=== PATIENT | male | born 1955 | race Two or more races ===

== ENCOUNTER 2017-11-04 11:05 | Inpatient (IN) | payer MEDICAID, OTHER ==
[~2017-11-04] VITALS: Ht 1 cm; Wt 88.6 kg
[2017-11-04] MEDS ORDERED: PANTOPRAZOLE 40 MG/10 ML VIAL IV STA (11:23)
[2017-11-04] MEDS ORDERED: SODIUM CHLORIDE 0.9% 500 ML IVB ONE (11:23)
[2017-11-04] MEDS ORDERED: PROMETHAZINE HCL 25 MG/ML 1ML IV PRN ×2 (11:30→15:00)
[2017-11-04] MEDS ORDERED: HYDROmorphone HCL 2 MG/ML VL IV ONE (11:30)
[2017-11-04 12:26] LABS: Basophils # (auto) 0 uL; Basophils % (auto) 0.6 % (0.0-2.0); Eosinophils # (auto) 0.3 uL; Eosinophils % (auto) 7.6 % (0.0-7.0); Hematocrit 38.3 % (41.0-53.0); Hemoglobin 12.8 g/dL (13.5-17.5); Lymphocytes % (auto) 26.8 % (10.0-50.0); Mean Corpuscular Hemoglobin 29.2 pg (28.0-32.0); Mean Corpuscular Hgb Conc. 33.5 g/dL (32.0-36.0); Mean Corpuscular Volume 87.3 fL (80.0-100.0); Monocytes # (auto) 0.4 uL; Monocytes % (auto) 10.4 % (0.0-12.0); Neutrophils # (auto) 2.1 uL; Neutrophils % (auto) 54.6 % (37.0-80.0); Nucleated Red Blood Cells % 0.2 %; Red Blood Cells 4.39 10^6/uL (4.5-5.90); Red Cell Distribution Width 15.1 % (11.8-14.3); White Blood Cell 3.8 10^3/uL (4.4-10.8)
[2017-11-04 12:36] LABS: Platelet Count (auto) 79 10^3/uL (140-450)
[2017-11-04 12:38] LABS: Albumin 3.1 g/dL (3.4-5.0); Amylase 53 U/L (25-115); Anion Gap 10 (5-15); Aspartate Aminotransferase 95 U/L (15-37); Calcium 8.5 mg/dL (8.5-10.1); Carbon Dioxide 23 mmol/L (21-32); Chloride 111 mmol/L (98-107); Glucose 76 mg/dL (74-106); Lipase 102 U/L (73-393); Sodium 144 mmol/L (136-145)
[2017-11-04 12:43] LABS: Alanine Aminotransferase 68 U/L (16-61); Alkaline Phosphatase 133 U/L (45-117); Bilirubin, Total 0.8 mg/dL (0.2-1.0); Blood Urea Nitrogen 13 mg/dL (7-18); GFR African American 161 mL/min; GFR Non-African American 133 mL/min; Total Protein 7.2 g/dL (6.4-8.2)
[2017-11-04 12:59] LABS: Urine Bacteria NONE SEEN /hpf (None Seen); Urine Blood Negative /uL (Negative); Urine Mucus FEW (None Seen); Urine Specific Gravity 1.021 (1.001-1.035); Urine WBC 2 /hpf (0 - 3)
[2017-11-04] MEDS ORDERED: LACTULOSE 20Gm/30ML SOLN PO PRN (15:00)
[2017-11-04] MEDS ORDERED: ACETAMINOPHEN 500 MG TAB PO PRN (15:00)
[2017-11-04] MEDS ORDERED: LORazepam 0.5 MG TAB PO PRN (15:00)
[2017-11-04] MEDS ORDERED: NITROGLYCERIN 0.4 MG SL TAB SL PRN (15:00)
[2017-11-04] MEDS ORDERED: cefTRIAXone 1GM/10ml IVPUSH 10 ML IV ONE (15:00)
[2017-11-04] MEDS ORDERED: PANTOPRAZOLE 40 MG/10 ML VIAL IV ONE (15:00)
[2017-11-04] MEDS ORDERED: TEMAZEPAM 15 MG CAP PO PRN (15:00)
[2017-11-04] MEDS ORDERED: HYDROcodone-ACET 5/325MG TAB PO PRN (15:00)
[2017-11-04] MEDS: SODIUM CHLORIDE 0.9% 1,000 ML IV SCH ×2 (17:33→23:27)
[2017-11-04 20:30] VITALS: BP 131/83
[2017-11-04] MEDS: HYDROmorphone HCL 2 MG/ML VL IV PRN (21:28)
[2017-11-04] MEDS: PANTOPRAZOLE 40 MG/10 ML VIAL IV SCH (21:29)
[2017-11-04] MEDS: metroNIDAZOLE 500MG/100ML 100 ML IV SCH (21:29)
[2017-11-04 21:51] VITALS: BP 131/83
[2017-11-04] MEDS ORDERED: TAM04C PO (23:32)
[2017-11-04] MEDS ORDERED: HYDR-4683 PO (23:32)
[2017-11-05] MEDS: HYDROmorphone HCL 2 MG/ML VL IV PRN ×4 (01:56→20:49)
[2017-11-05 04:56] VITALS: BP 129/69
[2017-11-05] MEDS: metroNIDAZOLE 500MG/100ML 100 ML IV SCH ×2 (06:00→14:12)
[2017-11-05] MEDS: SODIUM CHLORIDE 0.9% 1,000 ML IV SCH ×3 (06:01→16:00)
[2017-11-05 07:08] LABS: Basophils # (auto) 0 uL; Basophils % (auto) 0.9 % (0.0-2.0); Eosinophils # (auto) 0.3 uL; Eosinophils % (auto) 9.8 % (0.0-7.0); Hematocrit 35.1 % (41.0-53.0); Hemoglobin 11.8 g/dL (13.5-17.5); Lymphocytes # (auto) 0.8 uL; Lymphocytes % (auto) 21.6 % (10.0-50.0); Mean Corpuscular Hemoglobin 29.5 pg (28.0-32.0); Mean Corpuscular Hgb Conc. 33.6 g/dL (32.0-36.0); Mean Corpuscular Volume 87.8 fL (80.0-100.0); Monocytes # (auto) 0.4 uL; Monocytes % (auto) 10.8 % (0.0-12.0); Neutrophils % (auto) 56.9 % (37.0-80.0); Nucleated Red Blood Cells % 0.2 %; Platelet Count (auto) 68 10^3/uL (140-450); Red Cell Distribution Width 14.8 % (11.8-14.3); White Blood Cell 3.5 10^3/uL (4.4-10.8)
[2017-11-05 07:22] LABS: INR 1.08 (0.9-1.15); Prothrombin Time 11.5 sec (9.27-12.13)
[2017-11-05 07:35] LABS: Albumin 2.5 g/dL (3.4-5.0); BUN/Creatinine Ratio 17.4; Calcium 7.7 mg/dL (8.5-10.1); Potassium 3.7 mmol/L (3.5-5.1)
[2017-11-05 07:39] LABS: Cholesterol 105 mg/dL (< 200); HDL Cholesterol 36 mg/dL (40-59); LDL Cholesterol 68 mg/dL (< 100); Triglycerides 78 mg/dL (< 150)
[2017-11-05 07:46] LABS: Bilirubin, Total 0.8 mg/dL (0.2-1.0); Total Protein 6.2 g/dL (6.4-8.2)
[2017-11-05 08:00] VITALS: BP 126/80
[2017-11-05] MEDS ORDERED: cefTRIAXone 1GM/10ml IVPUSH 10 ML IV SCH (09:00)
[2017-11-05 09:01] VITALS: BP 126/81
[2017-11-05] MEDS: PANTOPRAZOLE 40 MG/10 ML VIAL IV SCH ×2 (09:13→22:39)
[2017-11-05] MEDS ORDERED: PANTOPRAZOLE 40 MG/10 ML VIAL IV SCH (10:00)
[2017-11-05 12:24] VITALS: BP_SYST 140; BP_SYST 148; BP_DIAS 79; BP_DIAS 80
[2017-11-05] MEDS ORDERED: MIDAZOLAM HCL 1MG/1ML-2 ML VIAL ONE (13:08)
[2017-11-05] MEDS ORDERED: PROPOFOL 10 MG/ML 20 ML IV ONE ×2 (13:08→13:10)
[2017-11-05] MEDS ORDERED: LIDOCAINE 2% (LOCAL ANESTH.) PF 5ml SDV ONE (13:08)
[2017-11-05] MEDS ORDERED: diphenhdrAMINE HCL 50 MG/1 ML VL ONE (13:08)
[2017-11-05] MEDS ORDERED: NALOXONE HCL 0.4 MG/ML VIAL IV PRN (13:45)
[2017-11-05] MEDS ORDERED: ONDANSETRON HCL 4 MG/2 ML VIAL IV ONE (13:45)
[2017-11-05] MEDS ORDERED: HYDROmorphone HCL 2 MG/ML VL IV PRN (13:45)
[2017-11-05 16:57] VITALS: BP 149/78
[2017-11-05 22:00] VITALS: BP 142/84
[2017-11-06] MEDS: SODIUM CHLORIDE 0.9% 1,000 ML IV SCH ×2 (02:20→11:21)
[2017-11-06] MEDS: HYDROmorphone HCL 2 MG/ML VL IV PRN ×3 (02:20→12:15)
[2017-11-06 03:54] LABS: Basophils # (auto) 0.1 uL; Basophils % (auto) 1.1 % (0.0-2.0); Eosinophils # (auto) 0.4 uL; Eosinophils % (auto) 8.5 % (0.0-7.0); Hematocrit 36.8 % (41.0-53.0); Hemoglobin 12.1 g/dL (13.5-17.5); Lymphocytes # (auto) 1.1 uL; Lymphocytes % (auto) 24.2 % (10.0-50.0); Mean Corpuscular Hemoglobin 28.7 pg (28.0-32.0); Mean Corpuscular Hgb Conc. 32.8 g/dL (32.0-36.0); Mean Corpuscular Volume 87.5 fL (80.0-100.0); Monocytes # (auto) 0.5 uL; Monocytes % (auto) 11.3 % (0.0-12.0); Neutrophils # (auto) 2.5 uL; Neutrophils % (auto) 54.9 % (37.0-80.0); Nucleated Red Blood Cells % 0.2 %; Platelet Count (auto) 69 10^3/uL (140-450); Red Cell Distribution Width 14.7 % (11.8-14.3); White Blood Cell 4.5 10^3/uL (4.4-10.8)
[2017-11-06 04:15] LABS: Potassium 3.8 mmol/L (3.5-5.1)
[2017-11-06 05:29] VITALS: BP 140/75
[2017-11-06 09:00] VITALS: BP 148/86
[2017-11-06] MEDS: PANTOPRAZOLE 40 MG/10 ML VIAL IV SCH (11:16)
[2017-11-06 13:00] VITALS: BP 153/93
[2017-11-06 17:53] VITALS: BP 153/93
[2017-11-06] MEDS ORDERED: PANTOPRAZOLE 40 MG TAB PO SCH (22:00)
[2017-11-08 11:31] LABS: Hepatitis B Surface Antibody Negative
[2017-11-08 12:04] LABS: Hepatitis A Total Antibody Positive
[2017-11-08 13:26] LABS: Hepatitis B Core Total AB Negative; Hepatitis B Surface Antigen Negative (Negative)
[2017-11-08 15:30] LABS: Hepatitis C Antibody Positive (Negative)
== END 2017-11-06 18:30 | disposition home or self-care (01) | DRG 241 ==
LOC: ER 11:10 → TELE 11:11 → TELE-CENTR 20:20
PROVIDERS: ADMIT Internal Medicine; ATTEND Internal Medicine
PROC: 06L38CZ Occlusion of Esophageal Vein with Extraluminal Device, Via Natural or Artificial Opening Endoscopic (ICD-10-PCS; principal; 2017-11-05 13:03)
DX: K29.80 Duodenitis without bleeding (principal); D69.59 Other secondary thrombocytopenia; I85.00 Esophageal varices without bleeding; K76.6 Portal hypertension; E88.09 Other disorders of plasma-protein metabolism, not elsewhere classified; K74.60 Unspecified cirrhosis of liver; K29.70 Gastritis, unspecified, without bleeding; F15.10 Other stimulant abuse, uncomplicated; K31.89 Other diseases of stomach and duodenum; K75.9 Inflammatory liver disease, unspecified; D64.9 Anemia, unspecified; N40.0 Benign prostatic hyperplasia without lower urinary tract symptoms; K59.00 Constipation, unspecified; I10 Essential (primary) hypertension; I25.2 Old myocardial infarction; Z88.5 Allergy status to narcotic agent; Z91.018 Allergy to other foods
CPT/HCPCS: 36415; 43244; 71045; 74176; 76705; 78226; 80048; 80053; 80061; 81001; 82150; 83690; 83735; 84484; 85025; 85610; 85652; 85730; 86141; 86704; 86706; 86708; 86803; 87340; 93005; 94761; 96361; 96374; 96375; A6257; C9113; J0696; J2001; J2250; J2704; J3490

== ENCOUNTER 2018-04-21 16:32 | Emergency (ER) | payer MEDICAID ==
[~2018-04-21] VITALS: Ht 180.3 cm; Wt 86.6 kg
[~2018-04-21 16:32] MED LIST: BACL20TA PO; GABA100C9 PO; NAPR-223 PO
[2018-04-21 18:19] LABS: Albumin 3.4 g/dL (3.4-5.0); Calcium 8.7 mg/dL (8.5-10.1); Potassium 3.8 mmol/L (3.5-5.1)
[2018-04-21 18:23] LABS: BUN/Creatinine Ratio 18.8; Bilirubin, Total 0.7 mg/dL (0.2-1.0)
[2018-04-21] MEDS ORDERED: SODIUM CHLORIDE 0.9% 500 ML IVB ONE (19:29)
[2018-04-21] MEDS ORDERED: MORPHINE SULFATE 4 MG/ML SYR/VIAL IV ONE (19:30)
[2018-04-21] MEDS ORDERED: ONDANSETRON HCL 4 MG/2 ML VIAL IV ONE (19:30)
[2018-04-21 19:41] LABS: Basophils # (auto) 0 uL; Basophils % (auto) 0.6 % (0.0-2.0); Eosinophils # (auto) 0.5 uL; Hematocrit 42.7 % (41.0-53.0); Lymphocytes # (auto) 1.1 uL; Lymphocytes % (auto) 23.1 % (10.0-50.0); Mean Corpuscular Hemoglobin 28.2 pg (28.0-32.0); Mean Corpuscular Hgb Conc. 32.8 g/dL (32.0-36.0); Mean Corpuscular Volume 86.2 fL (80.0-100.0); Monocytes # (auto) 0.5 uL; Monocytes % (auto) 10.9 % (0.0-12.0); Neutrophils # (auto) 2.5 uL; Neutrophils % (auto) 54.4 % (37.0-80.0); Nucleated Red Blood Cells % 0.2 %; Platelet Count (auto) 83 10^3/uL (140-450); Red Blood Cells 4.96 10^6/uL (4.5-5.90); White Blood Cell 4.6 10^3/uL (4.4-10.8)
[2018-04-21 22:54] VITALS: BP 154/86
[2018-04-21] MEDS ORDERED: HYDROcodone-ACET 7.5/325MG TAB PO ONE (23:15)
== END 2018-04-21 23:22 | disposition home or self-care (01) ==
LOC: ER 16:32
DX: R10.84 Generalized abdominal pain (principal); I12.9 Hypertensive chronic kidney disease with stage 1 through stage 4 chronic kidney disease, or unspecified chronic kidney disease; N18.9 Chronic kidney disease, unspecified; I25.2 Old myocardial infarction; Z79.899 Other long term (current) drug therapy
CPT/HCPCS: 36415; 74176; 80053; 83690; 85025; 93005; 94761

== ENCOUNTER 2018-06-07 16:02 | Inpatient (IN) | payer MEDICAID ==
[~2018-06-07] VITALS: Ht 180.3 cm; Wt 90.5 kg
[2018-06-07] MEDS ORDERED: SODIUM CHLORIDE 0.9% 1,000 ML IV ONE (16:27)
[2018-06-07] MEDS ORDERED: ONDANSETRON HCL 4 MG/2 ML VIAL IV ONE (16:30)
[2018-06-07] MEDS ORDERED: MORPHINE SULFATE 4 MG/ML SYR/VIAL IV ONE (16:30)
[2018-06-07 17:04] LABS: Basophils # (auto) 0.1 uL; Basophils % (auto) 1.4 % (0.0-2.0); Eosinophils # (auto) 0.3 uL; Eosinophils % (auto) 4.9 % (0.0-7.0); Hematocrit 41.9 % (41.0-53.0); Hemoglobin 13.9 g/dL (13.5-17.5); Lymphocytes # (auto) 1.5 uL; Lymphocytes % (auto) 27.9 % (10.0-50.0); Mean Corpuscular Hemoglobin 28.4 pg (28.0-32.0); Mean Corpuscular Hgb Conc. 33.1 g/dL (32.0-36.0); Mean Corpuscular Volume 85.9 fL (80.0-100.0); Monocytes # (auto) 0.5 uL; Monocytes % (auto) 9.5 % (0.0-12.0); Neutrophils # (auto) 2.9 uL; Neutrophils % (auto) 56.3 % (37.0-80.0); Platelet Count (auto) 98 10^3/uL (140-450); Red Blood Cells 4.88 10^6/uL (4.5-5.90); Red Cell Distribution Width 16.7 % (11.8-14.3); White Blood Cell 5.2 10^3/uL (4.4-10.8)
[2018-06-07 17:17] LABS: Alanine Aminotransferase 61 U/L (16-61); Albumin 3.6 g/dL (3.4-5.0); Anion Gap 6 (5-15); Aspartate Aminotransferase 62 U/L (15-37); BUN/Creatinine Ratio 18.5; Blood Urea Nitrogen 17 mg/dL (7-18); Calcium 8.8 mg/dL (8.5-10.1); Carbon Dioxide 25 mmol/L (21-32); Chloride 109 mmol/L (98-107); GFR African American 108 mL/min; GFR Non-African American 89 mL/min; Glucose 93 mg/dL (74-106); INR 0.99 (0.9-1.15); Partial Thromboplastin Time 28.3 sec (23.78-33.04); Potassium 3.8 mmol/L (3.5-5.1); Prothrombin Time 10.6 sec (9.27-12.13); Sodium 140 mmol/L (136-145)
[2018-06-07 17:22] LABS: Alkaline Phosphatase 129 U/L (45-117); Bilirubin, Total 0.6 mg/dL (0.2-1.0); Total Protein 7.9 g/dL (6.4-8.2)
[2018-06-07] MEDS ORDERED: MORPHINE SULF INJ 2 MG/ML SYRINGE 1ML IV PRN (18:15)
[2018-06-07] MEDS ORDERED: ONDANSETRON HCL 4 MG/2 ML VIAL IV PRN (18:15)
[2018-06-07] MEDS ORDERED: ACETAMINOPHEN 500 MG TAB PO PRN (18:15)
[2018-06-07] MEDS ORDERED: NITROGLYCERIN 0.4 MG SL TAB SL PRN (18:15)
--- NOTE | 2018-06-07 21:20 | NUR ---
MS admit from [facility] admitted to [facility], no SBAR received. Patient oriented to Gisella daniel RN, unit, room, bed, and unit policies regarding patient care and visiting hours. Patient weighed by bedscale and encouraged to call if he needs something. All questions and concerns addressed, patient verbalized understanding.
[2018-06-07 21:25] VITALS: BP 127/78
[2018-06-07 22:16] LABS: Urine Bacteria NONE SEEN /hpf (None Seen); Urine Blood Negative /uL (Negative); Urine Specific Gravity 1.017 (1.001-1.035); Urine WBC 1 /hpf (0 - 3)
[2018-06-07 22:32] VITALS: BP 127/78
[2018-06-07] MEDS: GABAPENTIN 100 MG CAP PO SCH (23:05)
[2018-06-07] MEDS: BACLOFEN 10 MG TAB PO SCH (23:05)
[2018-06-07] MEDS: PROPRANOLOL HCL 20 MG TAB PO SCH (23:05)
[2018-06-07] MEDS: HYDROcodone-ACET 5/325MG TAB PO PRN (23:07)
[2018-06-08] MEDS: MORPHINE SULF INJ 2 MG/ML SYRINGE 1ML IV PRN ×3 (02:47→17:44)
[2018-06-08 04:40] VITALS: BP 119/62
[2018-06-08] MEDS: GABAPENTIN 100 MG CAP PO SCH ×3 (05:50→22:16)
[2018-06-08] MEDS: BACLOFEN 10 MG TAB PO SCH ×3 (05:50→22:14)
[2018-06-08 07:28] LABS: Basophils # (auto) 0 uL; Basophils % (auto) 0.9 % (0.0-2.0); Eosinophils # (auto) 0.3 uL; Eosinophils % (auto) 6.8 % (0.0-7.0); Hematocrit 37.4 % (41.0-53.0); Hemoglobin 12.5 g/dL (13.5-17.5); Lymphocytes # (auto) 1.6 uL; Lymphocytes % (auto) 31.2 % (10.0-50.0); Mean Corpuscular Hemoglobin 28.6 pg (28.0-32.0); Mean Corpuscular Hgb Conc. 33.3 g/dL (32.0-36.0); Monocytes # (auto) 0.5 uL; Monocytes % (auto) 8.9 % (0.0-12.0); Neutrophils # (auto) 2.7 uL; Neutrophils % (auto) 52.2 % (37.0-80.0); Platelet Count (auto) 86 10^3/uL (140-450); Red Blood Cells 4.35 10^6/uL (4.5-5.90); Red Cell Distribution Width 16.3 % (11.8-14.3); White Blood Cell 5.1 10^3/uL (4.4-10.8)
[2018-06-08 07:30] LABS: Calcium 8.4 mg/dL (8.5-10.1); Potassium 3.9 mmol/L (3.5-5.1)
[2018-06-08 07:35] LABS: BUN/Creatinine Ratio 24.4
--- NOTE | 2018-06-08 07:50 | NUR ---
PT RESTING IN BED, PT REPORTS PAIN 8/10 IN ABDOMEN. ABDOMEN TENDER UPON PALPATION. WILL GIVE PRN PAIN MEDICATION. PT ENCOURAGED TO USE CALL LIGHT PRN, WILL CONTINUE TO MONITOR.
[2018-06-08 09:00] VITALS: BP 105/52
[2018-06-08] MEDS: PROPRANOLOL HCL 20 MG TAB PO SCH ×2 (10:00→22:00)
[2018-06-08] MEDS: PANTOPRAZOLE 40 MG/10 ML VIAL IV SCH (10:18)
[2018-06-08] MEDS: SPIRONOLACTONE 25 MG TAB PO SCH (10:18)
[2018-06-08] MEDS: cefTRIAXone 1GM/50ML D5W 50 ML IV SCH (10:18)
[2018-06-08] MEDS: FUROSEMIDE 20 MG TAB PO SCH (10:19)
[2018-06-08] MEDS ORDERED: NAPROXEN 500 MG TAB PO ONE (11:00)
--- NOTE | 2018-06-08 11:20 | NUR ---
Dr Atwood saw pt and updated him on poc. New orders for urology consult, ultrasound of kidneys, and stool and urine culture. Sample cups at bedside, pt instructed to call as soon as samples available. Confirmed with Dr Rai diaz to give pt morphine, said yes. PRN morphine given,will continue to monitor. Addendum: 06/08/18 at 1156 by MULUGETA SULTANA RN NOTIFIED PT HR 49, AND RUNNING SINUS CHAI. AWARE, NO NEW ORDERS.
[2018-06-08] MEDS ORDERED: LINEZOLID 600MG/300ML 300 ML IV SCH (12:00)
[2018-06-08] MEDS: LINEZOLID 600MG TABLET PO SCH ×2 (12:55→22:16)
[2018-06-08 13:00] VITALS: BP 107/77
--- NOTE | 2018-06-08 16:46 | NUR ---
URINE SAMPLE SENT FOR URINE CULTURE.
[2018-06-08 17:00] VITALS: BP 100/67
[2018-06-08] MEDS: TAMSULOSIN HYDROCHLORIDE 0.4 MG CAP PO SCH (17:43)
[2018-06-08] MEDS ORDERED: MORPHINE SULF INJ 2 MG/ML SYRINGE 1ML ONE (17:46)
--- NOTE | 2018-06-08 19:30 | NUR ---
Opening Shift Note: A&Ox4, resting in bed. Room air, pain level 7/10 in abdomen generalized, and at baseline uses a walker/wheelchair; currently SBA pivot to wheelchair. Bed locked in lowest position, side rails up x2, call light within reach, and bed alarm on for patient safety. IV: left hand 20 g IID inserted on 06/07/18. Skin: previous scrotal abscess: no open wound at this time/LA. Contact isolation for hx of CDIFF. POC discussed with patient and questions answered. Will continue to round prn.
[2018-06-08 22:00] VITALS: BP 112/74
[2018-06-09 04:56] VITALS: BP 107/70
[2018-06-09 05:56] LABS: Basophils # (auto) 0 uL; Basophils % (auto) 0.7 % (0.0-2.0); Eosinophils # (auto) 0.2 uL; Eosinophils % (auto) 5.3 % (0.0-7.0); Hematocrit 39.6 % (41.0-53.0); Hemoglobin 13.2 g/dL (13.5-17.5); Lymphocytes # (auto) 1.3 uL; Lymphocytes % (auto) 29.5 % (10.0-50.0); Mean Corpuscular Hemoglobin 28.4 pg (28.0-32.0); Mean Corpuscular Hgb Conc. 33.3 g/dL (32.0-36.0); Mean Corpuscular Volume 85.4 fL (80.0-100.0); Monocytes # (auto) 0.5 uL; Monocytes % (auto) 11.2 % (0.0-12.0); Neutrophils # (auto) 2.3 uL; Neutrophils % (auto) 53.3 % (37.0-80.0); Nucleated Red Blood Cells % 0.3 %; Platelet Count (auto) 85 10^3/uL (140-450); Red Blood Cells 4.64 10^6/uL (4.5-5.90); Red Cell Distribution Width 16.5 % (11.8-14.3); White Blood Cell 4.4 10^3/uL (4.4-10.8)
[2018-06-09 06:18] LABS: Potassium 3.9 mmol/L (3.5-5.1)
[2018-06-09 06:26] LABS: BUN/Creatinine Ratio 26.5; Calcium 8.7 mg/dL (8.5-10.1)
[2018-06-09 07:38] VITALS: BP 121/79
[2018-06-09] MEDS: BACLOFEN 10 MG TAB PO SCH ×3 (07:44→22:17)
[2018-06-09] MEDS: GABAPENTIN 100 MG CAP PO SCH ×3 (07:44→22:18)
[2018-06-09] MEDS: NAPROXEN 500 MG TAB PO SCH ×3 (07:44→22:18)
--- NOTE | 2018-06-09 07:55 | NUR ---
PT RESTING IN BED, NO DISTRESS NOTED. PT DENIES PAIN AT THIS TIME. PT ENCOURAGED TO USE CALL LIGHT PRN, AND IS AWARE STOOL SAMPLE STILL NEEDED.
[2018-06-09] MEDS: SPIRONOLACTONE 25 MG TAB PO SCH (09:09)
[2018-06-09] MEDS: PROPRANOLOL HCL 20 MG TAB PO SCH ×2 (09:09→22:00)
[2018-06-09] MEDS: PANTOPRAZOLE 40 MG/10 ML VIAL IV SCH (09:09)
[2018-06-09] MEDS: cefTRIAXone 1GM/50ML D5W 50 ML IV SCH (09:09)
[2018-06-09] MEDS: FUROSEMIDE 20 MG TAB PO SCH (09:10)
[2018-06-09] MEDS: LINEZOLID 600MG TABLET PO SCH ×2 (09:12→22:18)
[2018-06-09 12:00] VITALS: BP 113/71
[2018-06-09 16:42] VITALS: BP 128/75
[2018-06-09] MEDS: TAMSULOSIN HYDROCHLORIDE 0.4 MG CAP PO SCH (17:23)
--- NOTE | 2018-06-09 19:30 | NUR ---
Opening Shift Note: A&Ox4, resting in bed. Room air, pain level 7/10 in abdomen generalized, and at baseline uses a walker/wheelchair; currently SBA pivot to wheelchair. Patient's own wheelchair at bedside. Bed locked in lowest position, side rails up x2, call light within reach, and bed alarm on for patient safety. IV: left hand 20 g IID inserted on 06/07/18; IV redressed. Skin: previous scrotal abscess: no open wound at this time/ENDOSCOPY RN. Contact isolation for hx of CDIFF. POC discussed with patient and questions answered. Will continue to round prn.
[2018-06-09] MEDS: MORPHINE SULF INJ 2 MG/ML SYRINGE 1ML IV PRN (19:55)
[2018-06-09 22:00] VITALS: BP 122/73
--- NOTE | 2018-06-09 22:00 | NUR ---
Held 2200 propranolol HCI 20 mg related to HR of 55.
[2018-06-10] MEDS: MORPHINE SULF INJ 2 MG/ML SYRINGE 1ML IV PRN ×2 (02:10→08:17)
[2018-06-10 05:00] VITALS: BP 116/70
[2018-06-10] MEDS: BACLOFEN 10 MG TAB PO SCH ×3 (05:33→22:21)
[2018-06-10] MEDS: GABAPENTIN 100 MG CAP PO SCH ×3 (05:34→22:22)
[2018-06-10] MEDS: cefTRIAXone 1GM/50ML D5W 50 ML IV SCH (08:16)
[2018-06-10 09:00] VITALS: BP 117/66
[2018-06-10] MEDS: PROPRANOLOL HCL 20 MG TAB PO SCH ×2 (10:00→22:00)
--- NOTE | 2018-06-10 10:09 | NUR ---
Abdominal pain: Patient stating 10/10 abdominal pain and moaning with discomfort. Verbal order received from Dr. Sosa for one time dose of ducolax suppository to help patient move bowels.
[2018-06-10] MEDS ORDERED: BISACODYL 10 MG RECT SUPP PR ONE (10:15)
--- NOTE | 2018-06-10 10:30 | NUR ---
Dr. Sosa at bedside; patient is not being discharged today; new orders per physician related to abdominal pain
[2018-06-10] MEDS: PANTOPRAZOLE 40 MG/10 ML VIAL IV SCH (10:39)
[2018-06-10] MEDS: SPIRONOLACTONE 25 MG TAB PO SCH (10:39)
[2018-06-10] MEDS: NAPROXEN 500 MG TAB PO SCH ×2 (10:40→22:21)
[2018-06-10] MEDS: LINEZOLID 600MG TABLET PO SCH ×2 (10:40→22:21)
[2018-06-10] MEDS: FUROSEMIDE 20 MG TAB PO SCH (10:40)
--- NOTE | 2018-06-10 10:41 | NUR ---
Held 1000 propranolol related to decreased HR of 56.
[2018-06-10] MEDS ORDERED: D5W/ SOD CHL 0.9%/KCL 20MEQ 1,000 ML IV ONE (10:45)
[2018-06-10] MEDS ORDERED: LACTULOSE 20Gm/30ML SOLN PO ONE (11:00)
--- NOTE | 2018-06-10 11:54 | NUR ---
Case management at patient's medical group (Andreea-field service representative) called to check status of patient transfer.
--- NOTE | 2018-06-10 12:56 | NUR ---
Page sent to Dr. Sosa: Acute abdominal series neg for acute disease and neg obstruction; page sent to possible resume diet; currently NPO
[2018-06-10 13:00] VITALS: BP 129/83
--- NOTE | 2018-06-10 13:08 | NUR ---
Started IVF D5W/Pot at 75 ml/hr per new order in left hand 20 g.
--- NOTE | 2018-06-10 15:14 | NUR ---
Opening Shift Note Assumed care of patient, awake and alert x 4. Patient's own wheelchair at bedside. Bed is in lowest position and locked. Call light within reach. Board updated. No S/S of distress/SOB or pain.Tele box number matches monitor and leads are in correct placement. IV fluids infusing at ordered rate. Instructed on POC and to call for assist PRN, will continue to monitor for changes Q1hr and PRN.
--- NOTE | 2018-06-10 15:38 | NUR ---
IV insertion IV access obtained, via clean technique by inserting a 22 gauge catheter into a vein in the right forearm after 1 attempt. IV secured properly. No trauma to site. Patient tolerated well.
[2018-06-10 17:00] VITALS: BP 123/69
[2018-06-10] MEDS: TAMSULOSIN HYDROCHLORIDE 0.4 MG CAP PO SCH (17:33)
[2018-06-10 22:00] VITALS: BP 107/67
[2018-06-11 05:00] VITALS: BP 102/66
[2018-06-11] MEDS: BACLOFEN 10 MG TAB PO SCH ×2 (06:00→14:52)
[2018-06-11] MEDS: GABAPENTIN 100 MG CAP PO SCH ×2 (06:01→14:52)
[2018-06-11 08:00] VITALS: BP 107/67
[2018-06-11] MEDS: cefTRIAXone 1GM/50ML D5W 50 ML IV SCH (08:49)
[2018-06-11 09:00] VITALS: BP 110/70
[2018-06-11] MEDS: PANTOPRAZOLE 40 MG/10 ML VIAL IV SCH (11:14)
[2018-06-11] MEDS: LINEZOLID 600MG TABLET PO SCH (11:27)
[2018-06-11] MEDS: PROPRANOLOL HCL 20 MG TAB PO SCH (11:27)
[2018-06-11] MEDS: SPIRONOLACTONE 25 MG TAB PO SCH (11:28)
[2018-06-11] MEDS: NAPROXEN 500 MG TAB PO SCH (11:28)
[2018-06-11] MEDS: FUROSEMIDE 20 MG TAB PO SCH (11:29)
[2018-06-11 12:50] VITALS: BP 122/75
--- NOTE | 2018-06-11 15:07 | NUR ---
NUTRITION ASSESSMENT NOTES Please refer to link notes of nutrition screen form filed under the intervention section of the plan of care for further details. Est. Needs: 1800 kcal to 2250 kcal (20-25 kcal/kgBW), 72 gms to 91 gms pro (0.8-1.0 gms/kgBW). Will continue to monitor pertinent labs and reassess nutrient need prn Thank you. Addendum: 06/11/18 at [address] Amended: Links added.
[2018-06-11] MEDS: HYDROcodone-ACET 5/325MG TAB PO PRN (16:10)
[2018-06-11 16:19] VITALS: BP 122/75
[2018-06-11 16:24] VITALS: BP 123/71
== END 2018-06-11 17:57 | disposition home or self-care (01) | DRG 463 ==
LOC: ER 16:04 → OVERFLOW 18:01 → CENTRAL 21:20 → TELE-CENTR 06-08 09:35
PROVIDERS: ADMIT Nurse Practitioner Acute Care; ATTEND Internal Medicine Pulmonary Disease
DX: N12 Tubulo-interstitial nephritis, not specified as acute or chronic (principal); D69.6 Thrombocytopenia, unspecified; K74.60 Unspecified cirrhosis of liver; K59.00 Constipation, unspecified; I10 Essential (primary) hypertension; N40.0 Benign prostatic hyperplasia without lower urinary tract symptoms; R00.1 Bradycardia, unspecified; N41.9 Inflammatory disease of prostate, unspecified; D64.9 Anemia, unspecified; G89.29 Other chronic pain; K76.9 Liver disease, unspecified; N32.9 Bladder disorder, unspecified; Z80.42 Family history of malignant neoplasm of prostate; Z82.49 Family history of ischemic heart disease and other diseases of the circulatory system; Z86.73 Personal history of transient ischemic attack (TIA), and cerebral infarction without residual deficits; Z87.440 Personal history of urinary (tract) infections
CPT/HCPCS: 36415; 71045; 74022; 74176; 76775; 80048; 80053; 81001; 83880; 84154; 84484; 85025; 85610; 85730; 87086; 93005; 96374; 96375; A6257; C9113; G0378; J0696; J2405

== ENCOUNTER 2020-01-04 02:54 | Inpatient (IN) | payer MEDICAID, OTHER ==
[~2020-01-04] VITALS: Ht 180.3 cm; Wt 104.4 kg
[~2020-01-04 02:54] MED LIST changes: -NAPR-223 PO
[2020-01-04 03:56] LABS: Urine Bacteria NONE SEEN /hpf (None Seen); Urine Blood Negative /uL (Negative); Urine Mucus FEW (None Seen); Urine Specific Gravity 1.024 (1.001-1.035); Urine WBC 1 /hpf (0 - 3)
[2020-01-04 04:48] LABS: Basophils # (auto) 0.1 10 ^3/uL (0-0.2); Basophils % (auto) 0.7 % (0.0-2.0); Eosinophils # (auto) 0.2 10 ^3/uL (0-0.8); Eosinophils % (auto) 2.4 % (0.0-7.0); Hematocrit 41.6 % (41.0-53.0); Hemoglobin 13.7 g/dL (13.5-17.5); Lymphocytes # (auto) 1.4 10 ^3/uL (0.4-5.4); Lymphocytes % (auto) 17.9 % (10.0-50.0); Mean Corpuscular Hemoglobin 28.8 pg (28.0-32.0); Mean Corpuscular Hgb Conc. 32.9 g/dL (32.0-36.0); Mean Corpuscular Volume 87.7 fL (80.0-100.0); Monocytes # (auto) 0.8 10 ^3/uL (0-1.3); Monocytes % (auto) 9.5 % (0.0-12.0); Neutrophils # (auto) 5.6 10 ^3/uL (1.6-8.6); Neutrophils % (auto) 69.5 % (37.0-80.0); Nucleated Red Blood Cells % 0.2 %; Platelet Count (auto) 109 10^3/uL (140-450); Red Blood Cells 4.74 10^6/uL (4.5-5.90); Red Cell Distribution Width 14.2 % (11.8-14.3)
[2020-01-04 05:02] LABS: INR 1.03 (0.9-1.15); Partial Thromboplastin Time 27.6 sec (23.0-31.2)
[2020-01-04 05:08] LABS: Albumin 3.3 g/dL (3.4-5.0); Calcium 9.1 mg/dL (8.5-10.1); Magnesium 2.4 mg/dL (1.6-2.6)
[2020-01-04 05:12] LABS: BUN/Creatinine Ratio 17.6; Bilirubin, Total 0.7 mg/dL (0.2-1.0); Total Protein 7.8 g/dL (6.4-8.2)
[2020-01-04] MEDS ORDERED: ONDANSETRON HCL 4 MG/2 ML VIAL IV ONE (05:45)
[2020-01-04] MEDS ORDERED: MORPHINE SULFATE 4 MG/ML SYR/VIAL IV ONE (05:45)
[2020-01-04] MEDS ORDERED: KETOROLAC TROMETH 30 MG/ML 1ML VIAL IV ONE (08:00)
[2020-01-04] MEDS ORDERED: cefTRIAXone 1GM/50ML D5W 50 ML IV ONE (08:15)
[2020-01-04] MEDS ORDERED: PROMETHAZINE HCL 25 MG/ML 1ML IV ONE (08:15)
[2020-01-04] MEDS ORDERED: metroNIDAZOLE 500MG/100ML 100 ML IV ONE (08:15)
[2020-01-04] MEDS ORDERED: SODIUM CHLORIDE 0.9% 1,000 ML IV ONE ×2 (08:15)
[2020-01-04] MEDS ORDERED: PROMETHAZINE HCL 25 MG/ML 1ML IV PRN (09:15)
[2020-01-04] MEDS ORDERED: MORPHINE SULF INJ 2 MG/ML SYRINGE 1ML IV PRN (09:15)
[2020-01-04] MEDS ORDERED: NITROGLYCERIN 0.4 MG SL TAB SL PRN (09:15)
[2020-01-04] MEDS ORDERED: ACETAMINOPHEN 500 MG TAB PO PRN (09:15)
[2020-01-04] MEDS ORDERED: OMNIPAQUE ORAL SOLN 500ml 12mg/ml PO ONE (09:20)
[2020-01-04] MEDS: SODIUM CHLORIDE 0.9% 1,000 ML IV SCH ×2 (09:36→18:12)
[2020-01-04] MEDS ORDERED: ENOXAPARIN SOD 40 MG/0.4 ML SYRINGE SC SCH (10:00)
--- NOTE | 2020-01-04 11:02 | NUR ---
Telemetry admit from [facility] admitted to Telemetry unit after SBAR received. Patient oriented to MAMADOU NARAYANAN RN primary RN, unit, room, bed, and unit policies regarding patient care and visiting hours. Patient now on continuous telemetry monitoring, tele box # and telemetry reading on arrival to unit is SR. , weighed by bedscale and encouraged to call if they need something. All questions and concerns addressed, patient verbalized understanding.
[2020-01-04] MEDS: FAMOTIDINE (10MG/ML) 2ML VL IV SCH ×2 (11:15→21:43)
[2020-01-04] MEDS: MORPHINE SULF INJ 2 MG/ML SYRINGE 1ML IV PRN ×2 (11:18→21:58)
[2020-01-04] MEDS ORDERED: IOHEXOL 300 MG/ML 100ML BOTTLE IJ ONE (11:50)
[2020-01-04 12:58] VITALS: BP 125/79
[2020-01-04] MEDS ORDERED: HEPARIN SODIUM (PORCINE) 5000 UNITS/ML 1ML VIAL IV ONE (13:45)
[2020-01-04] MEDS: metroNIDAZOLE 500MG/100ML 100 ML IV SCH ×2 (14:00→21:49)
[2020-01-04 14:27] LABS: Basophils # (auto) 0.1 10 ^3/uL (0-0.2); Basophils % (auto) 0.8 % (0.0-2.0); Eosinophils # (auto) 0.1 10 ^3/uL (0-0.8); Eosinophils % (auto) 0.7 % (0.0-7.0); Hemoglobin 13.5 g/dL (13.5-17.5); Lymphocytes # (auto) 1.1 10 ^3/uL (0.4-5.4); Lymphocytes % (auto) 10.4 % (10.0-50.0); Mean Corpuscular Hemoglobin 28.8 pg (28.0-32.0); Mean Corpuscular Hgb Conc. 32.9 g/dL (32.0-36.0); Mean Corpuscular Volume 87.6 fL (80.0-100.0); Monocytes % (auto) 8.9 % (0.0-12.0); Neutrophils # (auto) 8.7 10 ^3/uL (1.6-8.6); Neutrophils % (auto) 79.2 % (37.0-80.0); Platelet Count (auto) 103 10^3/uL (140-450); Red Blood Cells 4.69 10^6/uL (4.5-5.90); Red Cell Distribution Width 13.7 % (11.8-14.3); White Blood Cell 10.9 10^3/uL (4.4-10.8)
[2020-01-04 14:43] LABS: INR 1.03 (0.9-1.15); Partial Thromboplastin Time 29.6 sec (23.0-31.2)
[2020-01-04] MEDS: HEPARIN DRIP/D5W 100UNITS/ML 250 ML IV SCH (14:59)
[2020-01-04 16:30] VITALS: BP 140/72
--- NOTE | 2020-01-04 16:30 | NUR ---
IV insertion IV access obtained, via clean sterile technique by inserting 22 gauge catheter at RIGHT FOREARM after 2 attempt(s). IV secured properly. No trauma to site. Patient tolerated well.
[2020-01-04] MEDS: traMADol HCL 50 MG TAB PO PRN (16:59)
--- NOTE | 2020-01-04 20:00 | NUR ---
Opening Shift Note Assumed care of patient, awake and alert. No S/S of distress/SOB or pain. Instructed on POC and to call for assist PRN, will continue to monitor for changes Q1hr and PRN.With Heparin drip ongoing at 19ml/hour on the right forearm.
--- NOTE | 2020-01-04 21:00 | NUR ---
APTT result is 69.0, as per order or parameter, no bolus , no changes.
[2020-01-04 21:29] LABS: INR 1.08 (0.9-1.15)
[2020-01-04 22:00] VITALS: BP 116/65
[2020-01-05] MEDS: SODIUM CHLORIDE 0.9% 1,000 ML IV SCH ×2 (00:38→14:08)
[2020-01-05] MEDS: MORPHINE SULF INJ 2 MG/ML SYRINGE 1ML IV PRN ×3 (01:59→14:34)
[2020-01-05] MEDS: HEPARIN DRIP/D5W 100UNITS/ML 250 ML IV SCH ×2 (02:43→16:39)
[2020-01-05 04:22] LABS: Basophils # (auto) 0.1 10 ^3/uL (0-0.2); Basophils % (auto) 0.5 % (0.0-2.0); Eosinophils # (auto) 0 10 ^3/uL (0-0.8); Eosinophils % (auto) 0.3 % (0.0-7.0); Hematocrit 38.1 % (41.0-53.0); Hemoglobin 12.5 g/dL (13.5-17.5); Lymphocytes # (auto) 1.1 10 ^3/uL (0.4-5.4); Lymphocytes % (auto) 10.7 % (10.0-50.0); Mean Corpuscular Hemoglobin 28.7 pg (28.0-32.0); Mean Corpuscular Hgb Conc. 32.8 g/dL (32.0-36.0); Mean Corpuscular Volume 87.7 fL (80.0-100.0); Monocytes # (auto) 0.9 10 ^3/uL (0-1.3); Monocytes % (auto) 8.9 % (0.0-12.0); Neutrophils # (auto) 7.9 10 ^3/uL (1.6-8.6); Neutrophils % (auto) 79.6 % (37.0-80.0); Platelet Count (auto) 79 10^3/uL (140-450); Red Blood Cells 4.34 10^6/uL (4.5-5.90); Red Cell Distribution Width 13.9 % (11.8-14.3); White Blood Cell 9.9 10^3/uL (4.4-10.8)
[2020-01-05 04:42] LABS: Potassium 3.8 mmol/L (3.5-5.1)
--- NOTE | 2020-01-05 04:42 | NUR ---
Check for the result of APTT, no result yet.
[2020-01-05 04:43] LABS: INR 1.08 (0.9-1.15)
[2020-01-05 04:47] LABS: Partial Thromboplastin Time 81.5 sec (23.0-31.2)
--- NOTE | 2020-01-05 04:50 | NUR ---
Lab. called with APTT result of 81.5-no bolus, decrease of 200units /hour=2ml/hr., adjusted ,now its running of 17ml/hour
[2020-01-05 04:52] LABS: Albumin 2.9 g/dL (3.4-5.0); BUN/Creatinine Ratio 23.5; Bilirubin, Total 1.3 mg/dL (0.2-1.0); Total Protein 6.7 g/dL (6.4-8.2)
[2020-01-05 05:00] VITALS: BP 112/71
[2020-01-05] MEDS: metroNIDAZOLE 500MG/100ML 100 ML IV SCH ×4 (05:52→21:36)
[2020-01-05] MEDS: traMADol HCL 50 MG TAB PO PRN ×2 (06:51→19:50)
--- NOTE | 2020-01-05 07:25 | NUR ---
Opening Shift Note Assumed care of patient, awake and alert. Bed locked in lowest position, side rails up X2, call light within reach. Patient on room air no S/S of distress/SOB or pain. Instructed on POC and to call for assist PRN, will continue to monitor for changes Q1hr and PRN.
--- NOTE | 2020-01-05 07:40 | NUR ---
Report given to Tracy Pak, patient is resting no distress.
[2020-01-05 08:38] VITALS: BP 102/63
[2020-01-05] MEDS: FAMOTIDINE (10MG/ML) 2ML VL IV SCH ×2 (09:23→21:36)
[2020-01-05] MEDS: cefTRIAXone 1GM/50ML D5W 50 ML IV SCH (09:23)
[2020-01-05 12:31] LABS: INR 1.1 (0.9-1.15); Partial Thromboplastin Time 66.9 sec (23.0-31.2)
--- NOTE | 2020-01-05 12:35 | NUR ---
HEPARIN TITRATION PATIENT aPTT 66.9. PER PROTOCOL PATIENT DOES NOT NEED A BOLOS OR RATE CHANGE AT THIS TIME.
--- NOTE | 2020-01-05 12:48 | NUR ---
ROUNDING MD Ritesh BAJWA AT BEDSIDE. ALL QUESTIONS AND CONCERNS ADDRESSED AT THIS TIME.
[2020-01-05 12:56] VITALS: BP 107/70
--- NOTE | 2020-01-05 17:12 | NUR ---
Assumed Pt Care Assumed [facility] from [facility]. All questions answered.
[2020-01-05 17:13] VITALS: BP 123/88
[2020-01-05 17:42] LABS: INR 1.08 (0.9-1.15); Partial Thromboplastin Time 69.8 sec (23.0-31.2)
[2020-01-05 19:18] LABS: Alcohol, Urine < 3.0 mg/dL (0-10); Amphetamine Screen, Urine NEGATIVE (NEGATIVE); Barbiturate Scree,Urine NEGATIVE (NEGATIVE); Benzodiazephine Screen, Urine NEGATIVE (NEGATIVE); Cannabinoid Screen, Urine NEGATIVE (NEGATIVE); Cocaine Screen, Urine NEGATIVE (NEGATIVE); Opiate Scree,Urine POSITIVE (NEGATIVE); Phencyclidine Screen, Urine NEGATIVE (NEGATIVE)
--- NOTE | 2020-01-05 19:50 | NUR ---
Opening Shift Note Assumed care of patient, awake and alert. No S/S of distress/c/o abdominal pain 6/10 level. Instructed on POC and to call for assist PRN, will continue to monitor for changes Q1hr and PRN.Medicated with Ultram 50mg.p.o. as needed.
[2020-01-05 22:00] VITALS: BP 134/84
[2020-01-05 23:43] LABS: INR 1.11 (0.9-1.15)
[2020-01-05 23:59] LABS: Partial Thromboplastin Time 77.7 sec (23.0-31.2)
--- NOTE | 2020-01-06 00:06 | NUR ---
Result of APTT is 77.7, so no bolus and decreased by 2ml/hour.in the present rate=17ml/hour right now to 15ml/hour.
[2020-01-06] MEDS: SODIUM CHLORIDE 0.9% 1,000 ML IV SCH ×3 (01:15→21:15)
[2020-01-06] MEDS: MORPHINE SULF INJ 2 MG/ML SYRINGE 1ML IV PRN ×4 (01:49→23:57)
[2020-01-06 05:00] VITALS: BP 110/59
[2020-01-06] MEDS: HEPARIN DRIP/D5W 100UNITS/ML 250 ML IV SCH ×3 (05:28→22:01)
[2020-01-06] MEDS: metroNIDAZOLE 500MG/100ML 100 ML IV SCH ×3 (05:49→21:14)
[2020-01-06 06:55] LABS: Basophils # (auto) 0 10 ^3/uL (0-0.2); Basophils % (auto) 0.5 % (0.0-2.0); Eosinophils # (auto) 0.2 10 ^3/uL (0-0.8); Eosinophils % (auto) 3.3 % (0.0-7.0); Hematocrit 36.9 % (41.0-53.0); Hemoglobin 12.4 g/dL (13.5-17.5); Lymphocytes # (auto) 1.1 10 ^3/uL (0.4-5.4); Lymphocytes % (auto) 20.8 % (10.0-50.0); Mean Corpuscular Hgb Conc. 33.6 g/dL (32.0-36.0); Mean Corpuscular Volume 86.2 fL (80.0-100.0); Monocytes # (auto) 0.6 10 ^3/uL (0-1.3); Monocytes % (auto) 10.6 % (0.0-12.0); Neutrophils # (auto) 3.6 10 ^3/uL (1.6-8.6); Neutrophils % (auto) 64.8 % (37.0-80.0); Platelet Count (auto) 72 10^3/uL (140-450); Red Blood Cells 4.28 10^6/uL (4.5-5.90); Red Cell Distribution Width 13.6 % (11.8-14.3); White Blood Cell 5.5 10^3/uL (4.4-10.8)
[2020-01-06 07:37] LABS: INR 1.11 (0.9-1.15); Partial Thromboplastin Time 68.9 sec (23.0-31.2)
[2020-01-06 08:00] VITALS: BP 114/69
[2020-01-06] MEDS: cefTRIAXone 1GM/50ML D5W 50 ML IV SCH (08:55)
[2020-01-06 09:00] VITALS: BP 114/69
--- NOTE | 2020-01-06 09:06 | NUR ---
Dr. Ritesh Paula at bedside, discussed plan of care with patient.
[2020-01-06] MEDS: FAMOTIDINE (10MG/ML) 2ML VL IV SCH ×2 (10:16→21:14)
--- NOTE | 2020-01-06 11:02 | NUR ---
Medicated patient for 9/10 abdominal pain. Will continue to monitor for changes
--- NOTE | 2020-01-06 11:39 | NUR ---
Nutrition Assessment Consider starting TPN if pt NPO >48 hours dt to GI not accessible Est energy needs 9673-8698 kcal (14-18 kcal/kg BW 108.5kg) Est protein needs 78-94g (1-1.2g/kg IBW 78kg) Will reassess prn. Addendum: 01/06/20 at [address] Amended: Links added.
[2020-01-06 13:00] VITALS: BP 105/68
[2020-01-06 14:13] LABS: INR 1.1 (0.9-1.15); Partial Thromboplastin Time 63.8 sec (23.0-31.2)
[2020-01-06 16:33] VITALS: BP 139/91
--- NOTE | 2020-01-06 18:45 | NUR ---
No changes made for 1825 heparin drip. APTT at 1335 is 63.8. No titration needed. Pharmacy made aware.
--- NOTE | 2020-01-06 19:04 | NUR ---
Received patient from [facility] rn. Awake, alert and oriented x4. Denies pain, no SOB or s/s distress noted. Plan of care discussed. Patient on heparin drip at 15ml/hr. Bed in low and locked position with x2 rails up. Patient encouraged to maintain NPO status. Will continue to monitor q1hr and prn. Addendum: 01/06/20 at 1908 by Sravanthi Purvis RN ENTRY for 0740
--- NOTE | 2020-01-06 20:00 | NUR ---
Result of APTT this time is 60.4, no bolus no change of the rate of the heparin.
[2020-01-06 20:11] LABS: INR 1.09 (0.9-1.15); Partial Thromboplastin Time 60.4 sec (23.0-31.2)
--- NOTE | 2020-01-06 20:11 | NUR ---
Opening Shift Note Assumed care of patient, awake and alert. No S/S of distress/SOB c/o9/10 abdominal pain. Instructed on POC and to call for assist PRN, will continue to monitor for changes Q1hr and PRN.Medicated with Morphine 2mg.i.v.p. as needed. With ongoing Heparin drip at 15ml/hour.
[2020-01-06 22:22] VITALS: BP 134/66
[2020-01-07 02:58] LABS: INR 1.1 (0.9-1.15); Partial Thromboplastin Time 62.5 sec (23.0-31.2)
--- NOTE | 2020-01-07 03:07 | NUR ---
Result of APTT for 0200 is 62.5, no bolus no change .
[2020-01-07] MEDS: metroNIDAZOLE 500MG/100ML 100 ML IV SCH ×3 (05:43→22:00)
[2020-01-07 05:44] VITALS: BP 113/62
[2020-01-07] MEDS: MORPHINE SULF INJ 2 MG/ML SYRINGE 1ML IV PRN ×2 (06:32→20:01)
[2020-01-07] MEDS: SODIUM CHLORIDE 0.9% 1,000 ML IV SCH ×2 (07:15→15:55)
--- NOTE | 2020-01-07 07:17 | NUR ---
Report given to Tracy El, patient is [id number] no distress.
[2020-01-07 07:28] LABS: Basophils # (auto) 0 10 ^3/uL (0-0.2); Basophils % (auto) 0.4 % (0.0-2.0); Eosinophils # (auto) 0.2 10 ^3/uL (0-0.8); Eosinophils % (auto) 4.6 % (0.0-7.0); Hematocrit 36.7 % (41.0-53.0); Hemoglobin 12.5 g/dL (13.5-17.5); Lymphocytes # (auto) 0.8 10 ^3/uL (0.4-5.4); Lymphocytes % (auto) 20.7 % (10.0-50.0); Mean Corpuscular Hemoglobin 29.1 pg (28.0-32.0); Mean Corpuscular Volume 85.6 fL (80.0-100.0); Monocytes # (auto) 0.3 10 ^3/uL (0-1.3); Monocytes % (auto) 8.9 % (0.0-12.0); Neutrophils # (auto) 2.4 10 ^3/uL (1.6-8.6); Neutrophils % (auto) 65.4 % (37.0-80.0); Nucleated Red Blood Cells % 0.1 %; Platelet Count (auto) 86 10^3/uL (140-450); Red Blood Cells 4.28 10^6/uL (4.5-5.90); Red Cell Distribution Width 13.3 % (11.8-14.3); White Blood Cell 3.7 10^3/uL (4.4-10.8)
--- NOTE | 2020-01-07 08:00 | NUR ---
Received pt sitting on side of the bed, call light with in reach, will continue to monitor pt.
[2020-01-07 08:52] VITALS: BP 114/75
[2020-01-07] MEDS: FAMOTIDINE (10MG/ML) 2ML VL IV SCH ×2 (08:57→21:45)
[2020-01-07] MEDS: cefTRIAXone 1GM/50ML D5W 50 ML IV SCH (08:57)
--- NOTE | 2020-01-07 09:20 | NUR ---
Dr. Tong / GI at bed side to see pt, doctor ok for pt to have ice chips.
[2020-01-07 13:00] VITALS: BP 128/77
[2020-01-07] MEDS: HEPARIN DRIP/D5W 100UNITS/ML 250 ML IV SCH (15:55)
[2020-01-07 16:50] VITALS: BP 134/79
--- NOTE | 2020-01-07 19:55 | NUR ---
PAIN ASSESSMENT Patient reports 9/10 abdominal pain and is requesting pain medication. Will treat with PRN morphine.
[2020-01-07 22:25] VITALS: BP 129/70
[2020-01-08] MEDS: SODIUM CHLORIDE 0.9% 1,000 ML IV SCH ×2 (03:15→13:34)
[2020-01-08 05:30] VITALS: BP 125/68
[2020-01-08] MEDS: metroNIDAZOLE 500MG/100ML 100 ML IV SCH ×3 (05:50→21:35)
[2020-01-08 06:17] LABS: Basophils # (auto) 0 10 ^3/uL (0-0.2); Basophils % (auto) 0.7 % (0.0-2.0); Eosinophils # (auto) 0.1 10 ^3/uL (0-0.8); Eosinophils % (auto) 3.3 % (0.0-7.0); Hematocrit 38.5 % (41.0-53.0); Hemoglobin 12.7 g/dL (13.5-17.5); Lymphocytes # (auto) 0.7 10 ^3/uL (0.4-5.4); Lymphocytes % (auto) 19.9 % (10.0-50.0); Mean Corpuscular Hemoglobin 28.5 pg (28.0-32.0); Mean Corpuscular Hgb Conc. 33.1 g/dL (32.0-36.0); Mean Corpuscular Volume 86.1 fL (80.0-100.0); Monocytes # (auto) 0.3 10 ^3/uL (0-1.3); Monocytes % (auto) 9.1 % (0.0-12.0); Neutrophils # (auto) 2.2 10 ^3/uL (1.6-8.6); Nucleated Red Blood Cells % 0.2 %; Platelet Count (auto) 93 10^3/uL (140-450); Red Blood Cells 4.47 10^6/uL (4.5-5.90); Red Cell Distribution Width 13.6 % (11.8-14.3); White Blood Cell 3.3 10^3/uL (4.4-10.8)
[2020-01-08 06:38] LABS: INR 1.13 (0.9-1.15); Partial Thromboplastin Time 66.5 sec (23.0-31.2)
--- NOTE | 2020-01-08 06:50 | NUR ---
IV insertion IV access obtained, via clean sterile technique by inserting 22 gauge catheter at left hand after 2 attempt(s). IV secured properly. No trauma to site. Patient tolerated well.
--- NOTE | 2020-01-08 06:50 | NUR ---
PAIN ASSESSMENT Patient reports 9.10 abdominal pain and is requesting pain medication. Will treat with PRN Morphine.
[2020-01-08] MEDS: MORPHINE SULF INJ 2 MG/ML SYRINGE 1ML IV PRN ×2 (07:15→22:37)
[2020-01-08] MEDS: FAMOTIDINE (10MG/ML) 2ML VL IV SCH ×2 (08:44→21:35)
[2020-01-08] MEDS: cefTRIAXone 1GM/50ML D5W 50 ML IV SCH (08:44)
[2020-01-08] MEDS: HEPARIN DRIP/D5W 100UNITS/ML 250 ML IV SCH ×2 (08:49→23:13)
[2020-01-08 09:00] VITALS: BP 130/75
[2020-01-08 13:00] VITALS: BP 134/80
[2020-01-08] MEDS ORDERED: IOHEXOL 300 MG/ML 100ML BOTTLE IJ ONE (14:45)
--- NOTE | 2020-01-08 15:00 | NUR ---
Nutrition Followup Note Wt 105.4 kg Pt was in pain with RN by bedside. pt to have thrombectomy per records. Pt was NPO when rounded now advanced to clear liq diet with no PO recorded yet. Est energy needs 2440-1744 kcal (14-18 kcal/kg BW 108.5kg) Est protein needs 78-94g (1-1.2g/kg IBW 78kg) Will reassess prn. Labs: CA 8.0 L, ALB 2.9 L BM: Pt with no BM reported per Rn note Skin: BS 21 low risk, full details in acute care occupational therapist note PES: Inadequate oral intake aeb pt with NPO diet order r/t current medical condition Comments: Will continue to monitor PO intake, skin status. f/u high 2-3 days Rec: 1) advance diet as medically feasible 2) consider PN support if GI is not accessible 4) refer to CDE on dc 4) continue current plan of care
[2020-01-08 17:00] VITALS: BP 143/84
--- NOTE | 2020-01-08 20:00 | NUR ---
Opening Shift Note Assumed care of patient, awake and alert x4. Patient denies shortness of breath at this time. No sign/symptoms of distress noted or verbalized at this time. Instructed on plan of care and encouraged patient to call for assistance as needed, patient verbalized understanding. Bed is locked in lowest position, side rails x 2 are up, and call light is within reach.
[2020-01-08 22:00] VITALS: BP 159/100
[2020-01-09] MEDS: SODIUM CHLORIDE 0.9% 1,000 ML IV SCH ×3 (00:11→17:55)
[2020-01-09 05:00] VITALS: BP 154/89
[2020-01-09] MEDS: metroNIDAZOLE 500MG/100ML 100 ML IV SCH ×3 (06:30→22:00)
[2020-01-09 06:45] LABS: INR 1.18 (0.9-1.15)
[2020-01-09 06:47] LABS: Partial Thromboplastin Time 103.9 sec (23.0-31.2)
--- NOTE | 2020-01-09 06:50 | NUR ---
Heparin Drip Received call from lab regarding critical APTT: 103.9. Per protocol APTT has been stopped at this time and will be readjusted to 12mls/hr in an hour. Will endorse to tejas AGUIAR.
[2020-01-09 08:39] VITALS: BP 138/103
[2020-01-09] MEDS ORDERED: HEPARIN DRIP/D5W 100UNITS/ML 250 ML IV SCH (08:45)
[2020-01-09] MEDS: cefTRIAXone 1GM/50ML D5W 50 ML IV SCH (09:21)
[2020-01-09] MEDS: FAMOTIDINE (10MG/ML) 2ML VL IV SCH ×2 (09:22→21:15)
[2020-01-09 12:32] VITALS: BP 140/85
[2020-01-09 16:27] VITALS: BP 128/76
[2020-01-09] MEDS: MORPHINE SULF INJ 2 MG/ML SYRINGE 1ML IV PRN (16:43)
[2020-01-09] MEDS ORDERED: WARFARIN SODIUM 2.5 MG TAB PO ONE (17:00)
[2020-01-09 17:21] LABS: INR 1.12 (0.9-1.15); Partial Thromboplastin Time 28.2 sec (23.0-31.2)
[2020-01-09 22:00] VITALS: BP 135/78
[2020-01-10] MEDS: MORPHINE SULF INJ 2 MG/ML SYRINGE 1ML IV PRN (01:47)
[2020-01-10 05:00] VITALS: BP 136/89
[2020-01-10] MEDS: SODIUM CHLORIDE 0.9% 1,000 ML IV SCH ×2 (06:00→16:26)
[2020-01-10] MEDS: metroNIDAZOLE 500MG/100ML 100 ML IV SCH ×3 (06:00→21:36)
[2020-01-10 07:13] LABS: INR 1.23 (0.9-1.15)
[2020-01-10 09:00] VITALS: BP 121/74
[2020-01-10 09:03] LABS: Basophils # (auto) 0 10 ^3/uL (0-0.2); Basophils % (auto) 0.8 % (0.0-2.0); Eosinophils # (auto) 0.1 10 ^3/uL (0-0.8); Eosinophils % (auto) 3.2 % (0.0-7.0); Hematocrit 38.6 % (41.0-53.0); Hemoglobin 12.6 g/dL (13.5-17.5); Lymphocytes # (auto) 0.8 10 ^3/uL (0.4-5.4); Mean Corpuscular Hemoglobin 28.3 pg (28.0-32.0); Mean Corpuscular Hgb Conc. 32.7 g/dL (32.0-36.0); Mean Corpuscular Volume 86.6 fL (80.0-100.0); Monocytes # (auto) 0.4 10 ^3/uL (0-1.3); Monocytes % (auto) 12.3 % (0.0-12.0); Neutrophils # (auto) 2.1 10 ^3/uL (1.6-8.6); Neutrophils % (auto) 60.7 % (37.0-80.0); Nucleated Red Blood Cells % 0.2 %; Platelet Count (auto) 91 10^3/uL (140-450); Red Blood Cells 4.46 10^6/uL (4.5-5.90); Red Cell Distribution Width 14.1 % (11.8-14.3); White Blood Cell 3.5 10^3/uL (4.4-10.8)
[2020-01-10 09:12] LABS: Albumin 2.9 g/dL (3.4-5.0)
[2020-01-10] MEDS: cefTRIAXone 1GM/50ML D5W 50 ML IV SCH (09:30)
[2020-01-10] MEDS: FAMOTIDINE (10MG/ML) 2ML VL IV SCH ×2 (09:31→21:36)
--- NOTE | 2020-01-10 11:44 | NUR ---
[id number]-male, he is alert and oriented. Patient cognitive abilities are intact. Patient stated that he uses a walker and wheelchair to assist with ambulatory. Patient stated that he can do all ADLs independently. Patient stated that he lives with his ex-sister in law and brother in law. Patient stated that he is retired, patient stated that he receives pension from the [employer] and [employer] as a source of income. Patient stated that he will return home post discharge. Patient stated that his extended family has transportation post discharge. Patient is receptive to receive information on Advance Directive and POA forms to fill out. Patient stated that his daughter and ex-sister and brother in-law is his support system. Discharge Planning: SW will provide documents on Advance Directive and POA. SW suggested home health for physical therapy, patient refused. Addendum: 01/10/20 at 1144 by GLENIS FRANCO SS Amended: Links added.
[2020-01-10 13:00] VITALS: BP 147/62
[2020-01-10 17:00] VITALS: BP 150/88
[2020-01-10] MEDS ORDERED: WARFARIN SODIUM 2.5 MG TAB PO ONE (17:00)
[2020-01-10 22:00] VITALS: BP 125/78
[2020-01-11 05:00] VITALS: BP 121/72
[2020-01-11] MEDS: SODIUM CHLORIDE 0.9% 1,000 ML IV SCH ×3 (06:00→21:15)
[2020-01-11] MEDS: metroNIDAZOLE 500MG/100ML 100 ML IV SCH ×4 (06:05→22:13)
[2020-01-11 06:11] LABS: Basophils # (auto) 0 10 ^3/uL (0-0.2); Basophils % (auto) 0.7 % (0.0-2.0); Eosinophils # (auto) 0.1 10 ^3/uL (0-0.8); Eosinophils % (auto) 2.3 % (0.0-7.0); Hematocrit 39.2 % (41.0-53.0); Hemoglobin 12.7 g/dL (13.5-17.5); Lymphocytes # (auto) 0.8 10 ^3/uL (0.4-5.4); Lymphocytes % (auto) 18.6 % (10.0-50.0); Mean Corpuscular Hemoglobin 28.2 pg (28.0-32.0); Mean Corpuscular Hgb Conc. 32.4 g/dL (32.0-36.0); Monocytes # (auto) 0.5 10 ^3/uL (0-1.3); Monocytes % (auto) 12.7 % (0.0-12.0); Neutrophils # (auto) 2.7 10 ^3/uL (1.6-8.6); Neutrophils % (auto) 65.7 % (37.0-80.0); Nucleated Red Blood Cells % 0.1 %; Platelet Count (auto) 87 10^3/uL (140-450); Red Blood Cells 4.51 10^6/uL (4.5-5.90); Red Cell Distribution Width 14.2 % (11.8-14.3); White Blood Cell 4.1 10^3/uL (4.4-10.8)
[2020-01-11 06:26] LABS: INR 1.57 (0.9-1.15)
[2020-01-11 09:00] VITALS: BP 126/84
[2020-01-11] MEDS: cefTRIAXone 1GM/50ML D5W 50 ML IV SCH (09:22)
[2020-01-11] MEDS: FAMOTIDINE (10MG/ML) 2ML VL IV SCH ×2 (09:22→20:42)
[2020-01-11] MEDS: HEPARIN DRIP/D5W 100UNITS/ML 250 ML IV SCH (12:23)
[2020-01-11 13:00] VITALS: BP 146/85
[2020-01-11 13:50] LABS: Urine Bacteria NONE SEEN /hpf (None Seen); Urine Blood Negative /uL (Negative); Urine Hyaline Cast FEW /lpf (0 - 2); Urine Mucus FEW (None Seen); Urine Specific Gravity 1.013 (1.001-1.035); Urine WBC <1 /hpf (0 - 3)
--- NOTE | 2020-01-11 14:27 | NUR ---
Nutrition Followup Note Wt 105.2 kg Pt was sleeping when rounded this am. pt with no distress noted now advanced to full liq diet with adequate Po of 75% x 5 per RN doc Est energy needs 8170-0646 kcal (14-18 kcal/kg BW 108.5kg) Est protein needs 78-94g (1-1.2g/kg IBW 78kg) Will reassess prn. Labs: CA 8.0 L, ALB 2.9 L BM: Pt with 1 BM 01/08 per Rn note Skin: BS 21 low risk, full details in nursing care partner note PES: Resolved: Inadequate oral intake aeb pt with NPO diet order r/t current medical condition Comments: Will continue to monitor PO intake, skin status. f/u high 3-5 days Rec: 1) advance diet as medically feasible 2) refer to CDE on dc 3) continue current plan of care
[2020-01-11 17:00] VITALS: BP 157/88
[2020-01-11] MEDS ORDERED: WARFARIN SODIUM 2 MG TAB PO ONE (17:00)
--- NOTE | 2020-01-11 17:00 | NUR ---
Was unable to administer Flagyl until 1700 Needed to wait for midline placement. Flagyl was administered after midline was placed.
--- NOTE | 2020-01-11 17:07 | NUR ---
Midline Placement: Patient educated on need for midline placement. All risks and benefits explained and all questions and concerns addresses prior to procedure. 20g/8 cm midline inserted via right basilic vein using Ultrasound. Sterile technique utilized. Blood return obtained from the single lumen and flushed easily with NS using proper technique. Midline secured with saline lock; biodisc and occlusive dressing applied. Primary RN Leia notified. Midline lot # [id number]
--- NOTE | 2020-01-11 19:30 | NUR ---
Opening Shift Note Assumed care of patient, awake and alert. No S/S of distress/SOB or pain. Pt refusing blood draw for aPTT. education provided
--- NOTE | 2020-01-11 20:30 | NUR ---
set up mold technician just kareem blood for aptt,keep educating pt on imptance of blood monitoring
[2020-01-11 21:21] LABS: INR 1.89 (0.9-1.15)
[2020-01-11 21:25] LABS: Partial Thromboplastin Time > 139.0 sec (23.0-31.2)
--- NOTE | 2020-01-11 21:30 | NUR ---
stopped heparin drip for an hr as protocol. spoke with pharmacist
[2020-01-11 22:00] VITALS: BP 142/88
--- NOTE | 2020-01-11 22:30 | NUR ---
resumed heparin drip, decreased rate as protocol
[2020-01-11] MEDS: MORPHINE SULF INJ 2 MG/ML SYRINGE 1ML IV PRN (22:37)
--- NOTE | 2020-01-12 04:20 | NUR ---
reminded for aptt at 0430 stated they are coming
[2020-01-12] MEDS: HEPARIN DRIP/D5W 100UNITS/ML 250 ML IV SCH ×2 (04:39→15:30)
[2020-01-12 05:00] VITALS: BP 139/80
[2020-01-12] MEDS: SODIUM CHLORIDE 0.9% 1,000 ML IV SCH ×2 (05:42→17:54)
[2020-01-12] MEDS: metroNIDAZOLE 500MG/100ML 100 ML IV SCH ×3 (05:42→22:01)
--- NOTE | 2020-01-12 06:35 | NUR ---
stopped heparin drip at 0635. will resume after an hr
--- NOTE | 2020-01-12 07:35 | NUR ---
resumed heparin drip to 1300 units,13mls/hr
--- NOTE | 2020-01-12 07:35 | NUR ---
OPENING NOTE Assumed care of patient from NOC RN. Patient is AOX4 no s/s of distress noted. Patient noted to be on heparin drip at 1300units, midline is patent. Bed is in lowest locked position, call light within reach and side rails up x2. Updated patient on plan of care and patient verbalized understanding. Will continue to monitor q1hr and PRN.
--- NOTE | 2020-01-12 07:40 | NUR ---
closing note endorsed care to day RN, no sign of pain/distress at this time
[2020-01-12 08:31] VITALS: BP 136/83
[2020-01-12] MEDS: FAMOTIDINE (10MG/ML) 2ML VL IV SCH ×2 (09:50→21:22)
[2020-01-12] MEDS: cefTRIAXone 1GM/50ML D5W 50 ML IV SCH (09:50)
--- NOTE | 2020-01-12 09:50 | NUR ---
SPOKE WITH PHARMACIST Spoke with pharmacist. Informed pharmacist that NOC RN paused heparin at 0630 and resumed at 0735 to a rate of 1300 units. Per pharmacist continue heparin at that rate when scheduled bag is due. Per pharmacist he will order APTT draw for 1330.
[2020-01-12] MEDS ORDERED: HEPARIN DRIP/D5W 100UNITS/ML 250 ML IV SCH (10:00)
--- NOTE | 2020-01-12 10:20 | NUR ---
physician rounding Dr. Paula at bedside. MD updated patient on plan of care, patient verbalized understanding. No new orders received, will continue to monitor.
[2020-01-12 13:00] VITALS: BP 126/70
[2020-01-12 14:14] LABS: INR 1.84 (0.9-1.15)
--- NOTE | 2020-01-12 14:20 | NUR ---
received critical received call from lab regarding critical APTT, noted at 105. Will page and follow protocol.
--- NOTE | 2020-01-12 14:21 | NUR ---
paged Left message regarding lab. Awaiting call back.
--- NOTE | 2020-01-12 14:22 | NUR ---
heparin heparin paused per protocol at 1422.
--- NOTE | 2020-01-12 14:52 | NUR ---
spoke with pharmacist Spoke with Risa pharmacist. Clarification for heparin was attained.
--- NOTE | 2020-01-12 15:22 | NUR ---
Heparin Heparin resumed per protocol.
[2020-01-12] MEDS: MORPHINE SULF INJ 2 MG/ML SYRINGE 1ML IV PRN (16:16)
[2020-01-12 17:00] VITALS: BP 136/88
--- NOTE | 2020-01-12 19:00 | NUR ---
END OF SHIFT NOTE Endorsed care to NOC COSME Snider, no s/s of distress noted.
--- NOTE | 2020-01-12 19:30 | NUR ---
Opening Shift Note Assumed care of patient. Patient is awake, alert, and oriented X 4. No S/S of respiratory distress noted. Patient denies pain at this time. Bed in lowest locked position, side rails up X 2, call light is within reach. Both IV are intact and patent. POC discussed and patient instructed to call for assistance as needed. Will continue to monitor for changes Q1hr and PRN.
[2020-01-12 20:00] VITALS: BP 131/74
--- NOTE | 2020-01-12 21:30 | NUR ---
Heparin No changes was made for 2114 heparin drip. APTT at 2114 was 62.1. No titration needed. Will continue at rate 10 ml/hr.
[2020-01-12 22:00] VITALS: BP 134/50
[2020-01-12 22:06] LABS: INR 1.67 (0.9-1.15); Partial Thromboplastin Time 62.1 sec (23.0-31.2)
[2020-01-13] MEDS: TEMAZEPAM 15 MG CAP PO PRN ×2 (00:34→23:29)
[2020-01-13] MEDS: HEPARIN DRIP/D5W 100UNITS/ML 250 ML IV SCH (02:31)
--- NOTE | 2020-01-13 03:40 | NUR ---
Heparin No changes was made for 0315 heparin drip. APTT at 0315 was 72.7. No titration needed per protocol. Will continue at rate 10 ml/hr.
[2020-01-13 04:25] LABS: INR 1.74 (0.9-1.15)
[2020-01-13 04:41] LABS: Partial Thromboplastin Time 72.7 sec (23.0-31.2)
[2020-01-13 05:00] VITALS: BP 120/70
[2020-01-13] MEDS: SODIUM CHLORIDE 0.9% 1,000 ML IV SCH ×3 (05:03→23:15)
[2020-01-13] MEDS: metroNIDAZOLE 500MG/100ML 100 ML IV SCH ×3 (06:58→22:55)
--- NOTE | 2020-01-13 07:30 | NUR ---
Opening Shift Note Assumed care of patient, awake and alert. No S/S of distress/SOB or pain. Instructed on POC and to call for assist PRN, will continue to monitor for changes Q1hr and PRN. Fall precautions in place per safety protocol.
[2020-01-13 09:00] VITALS: BP 140/82
--- NOTE | 2020-01-13 09:15 | NUR ---
Heparin Drip PTT 70.0. No changed need per heparin drip protocol. Per protocol, PTT draw ordered for 01/14/2020 @0915. Will cont to monitor patient.
[2020-01-13] MEDS: FAMOTIDINE (10MG/ML) 2ML VL IV SCH ×2 (09:52→22:55)
[2020-01-13] MEDS: cefTRIAXone 1GM/50ML D5W 50 ML IV SCH (09:52)
[2020-01-13 11:16] LABS: INR 1.61 (0.9-1.15)
[2020-01-13 13:00] VITALS: BP 141/98
--- NOTE | 2020-01-13 15:30 | NUR ---
IV Patient accidently pulled IV out. Pressure dressing applied to sight. Catheter intact. Will attempt new IV.
[2020-01-13 17:00] VITALS: BP 149/94
--- NOTE | 2020-01-13 18:00 | NUR ---
IV insertion IV access obtained, via clean sterile technique by inserting 22 gauge catheter at RFA after 1 attempt by COSME Jeffers. IV secured properly. No trauma to site. Patient tolerated well.
[2020-01-13 20:00] VITALS: BP 155/94
[2020-01-13 22:00] VITALS: BP 155/94
[2020-01-14 05:00] VITALS: BP 130/81
[2020-01-14] MEDS: HEPARIN DRIP/D5W 100UNITS/ML 250 ML IV SCH (05:05)
[2020-01-14 05:43] LABS: INR 1.54 (0.9-1.15); Partial Thromboplastin Time 67.5 sec (23.0-31.2)
[2020-01-14] MEDS: metroNIDAZOLE 500MG/100ML 100 ML IV SCH (06:03)
[2020-01-14] MEDS: MORPHINE SULF INJ 2 MG/ML SYRINGE 1ML IV PRN ×2 (06:55→21:47)
--- NOTE | 2020-01-14 09:00 | NUR ---
Heparin Drip PTT 67.5. No changed need per heparin drip protocol. Per pharmacy protocol, PTT draw ordered for 01/15/2020. Will cont to monitor patient.
[2020-01-14] MEDS: SODIUM CHLORIDE 0.9% 1,000 ML IV SCH ×2 (09:15→19:15)
[2020-01-14] MEDS: FAMOTIDINE (10MG/ML) 2ML VL IV SCH ×2 (09:23→21:36)
[2020-01-14] MEDS: cefTRIAXone 1GM/50ML D5W 50 ML IV SCH (09:23)
[2020-01-14 09:41] VITALS: BP 142/84
--- NOTE | 2020-01-14 10:15 | NUR ---
GI Dr Tong at bedside, aware of patient status. Per MD Tong, he will place patient on Coumadin, do not stop heparin drip, and keep patient on full liquid diet. Will cont to monitor patient.
--- NOTE | 2020-01-14 11:15 | NUR ---
Hospitalist MD Paula at bedside, aware of patient status. Per MD Paula oder urine sample for patient. Will carry out new orders and cont to monitor patient.
--- NOTE | 2020-01-14 12:44 | NUR ---
Nutrition Followup Notes Wt 104.9 kg Pt was awake when rounded this am. Pt with no distress, doing well. Pt is with a full liquid diet with adequate PO of ave 88% x 4 meals per RN doc. Est energy needs 6112-4797 kcal (14-18 kcal/kg BW 108.5kg) Est protein needs 78-94g (1-1.2g/kg IBW 78kg) Will reassess prn. Labs: CA 8.0 L, ALB 3.0 L BM: Pt with 1 BM 01/12 per Rn note Skin: BS 21 low risk, full details in care mgr note PES: Resolved: Inadequate oral intake aeb pt with NPO diet order r/t current medical condition Comments: Will continue to monitor PO intake, skin status. f/u high 3-5 days Rec: 1) advance diet as medically feasible 2) refer to CDE on dc 3) continue current plan of care
[2020-01-14 13:00] VITALS: BP 143/90
[2020-01-14] MEDS ORDERED: WARFARIN SODIUM 2.5 MG TAB PO ONE (17:00)
[2020-01-14 17:31] VITALS: BP 146/91
[2020-01-14 19:24] LABS: Urine Bacteria FEW /hpf (None Seen); Urine Blood Negative /uL (Negative); Urine Specific Gravity 1.007 (1.001-1.035); Urine WBC <1 /hpf (0 - 3)
--- NOTE | 2020-01-14 19:25 | NUR ---
Opening shift note Assumed care of patient from day shift RNDeonna. Patient is A&Ox4, respirations even and non-labored with no s/s of distress or c/o pain at this time. Discussed POC with patient who verbalized understanding. Safety precautions in place, bed in lowest locked position with 2 side rails up, call light within reach. Will continue to monitor Q1hr and PRN.
[2020-01-14 22:00] VITALS: BP 144/74
--- NOTE | 2020-01-14 22:00 | NUR ---
Changed IV dressing Patient Dressing had become dislodged. IV flushed, patent and intact at this time. New IV dressing applied. Patient tolerated well.
--- NOTE | 2020-01-15 02:36 | NUR ---
Patient resting Respirations even and non-labored with no s/s of distress at this time. Will continue to monitor.
[2020-01-15 05:00] VITALS: BP 125/74
[2020-01-15] MEDS: SODIUM CHLORIDE 0.9% 1,000 ML IV SCH ×3 (05:15→21:48)
[2020-01-15] MEDS: MORPHINE SULF INJ 2 MG/ML SYRINGE 1ML IV PRN (06:23)
--- NOTE | 2020-01-15 06:39 | NUR ---
Patient c/o abdominal pain 10/22 pain, administered Morphine per EMAR. Will continue to monitor.
[2020-01-15 06:59] LABS: Basophils # (auto) 0 10 ^3/uL (0-0.2); Basophils % (auto) 0.9 % (0.0-2.0); Eosinophils # (auto) 0.1 10 ^3/uL (0-0.8); Eosinophils % (auto) 2.4 % (0.0-7.0); Hematocrit 37.9 % (41.0-53.0); Hemoglobin 12.6 g/dL (13.5-17.5); Lymphocytes # (auto) 0.8 10 ^3/uL (0.4-5.4); Lymphocytes % (auto) 26.1 % (10.0-50.0); Mean Corpuscular Hemoglobin 28.7 pg (28.0-32.0); Mean Corpuscular Hgb Conc. 33.3 g/dL (32.0-36.0); Mean Corpuscular Volume 86.3 fL (80.0-100.0); Monocytes # (auto) 0.4 10 ^3/uL (0-1.3); Monocytes % (auto) 11.5 % (0.0-12.0); Neutrophils # (auto) 1.8 10 ^3/uL (1.6-8.6); Neutrophils % (auto) 59.1 % (37.0-80.0); Platelet Count (auto) 70 10^3/uL (140-450); Red Cell Distribution Width 14.3 % (11.8-14.3); White Blood Cell 3.1 10^3/uL (4.4-10.8)
--- NOTE | 2020-01-15 07:13 | NUR ---
Closing shift note Patient resting without s/s of distress at this time. Endorsed care to day shift RN, [place].
[2020-01-15 07:14] LABS: INR 1.36 (0.9-1.15); Partial Thromboplastin Time 60.8 sec (23.0-31.2); Potassium 3.4 mmol/L (3.5-5.1)
[2020-01-15 07:22] LABS: BUN/Creatinine Ratio 4.9; Bilirubin, Total 0.6 mg/dL (0.2-1.0); Calcium 8.4 mg/dL (8.5-10.1); Total Protein 6.5 g/dL (6.4-8.2)
--- NOTE | 2020-01-15 07:30 | NUR ---
Opening Shift Note Assumed care of patient, awake and alert. No S/S of distress/SOB or pain. Instructed on POC and to call for assist PRN, will continue to monitor for changes Q1hr and PRN. Bed is locked and in lowest position. Call light within reach.
[2020-01-15] MEDS: cefTRIAXone 1GM/50ML D5W 50 ML IV SCH (08:12)
[2020-01-15 08:52] VITALS: BP 128/67
[2020-01-15] MEDS: FAMOTIDINE (10MG/ML) 2ML VL IV SCH ×2 (09:48→22:15)
--- NOTE | 2020-01-15 10:00 | NUR ---
PHONE CALL RECEIVED FROM [employer] MANAGER REGARDING [facility] TRANSFER. PATIENT IS STILL ON HEPARIN DRIP AND IS UNABLE TO BE TRANSFERRED. WILL AWAIT NEW ORDERS.
[2020-01-15 12:43] VITALS: BP 135/84
--- NOTE | 2020-01-15 13:39 | NUR ---
DR. ALANIS AT BEDSIDE PATIENT WILL CONTINUE ON HEPARIN DRIP AND DIET WILL ADVANCE TO SOFT DIET. WILL CONTINUE WITH POC.
--- NOTE | 2020-01-15 15:40 | NUR ---
HEPARIN DRIP APTT 60.8 NO CHANGE TO HEPARIN DRIP RATE OF 10 ML/HR. WILL CONTINUE TO MONITOR PATIENT.
[2020-01-15] MEDS: HEPARIN DRIP/D5W 100UNITS/ML 250 ML IV SCH (15:42)
[2020-01-15 16:53] VITALS: BP 122/72
[2020-01-15] MEDS ORDERED: WARFARIN SODIUM 10 MG TAB PO ONE (17:00)
--- NOTE | 2020-01-15 19:25 | NUR ---
Opening shift note Assumed care of patient from day shift RNQuita. Patient A&Ox4, respirations even and non-labored with no s/s of distress. Discussed POC with patient who verbalized understanding. Heparin drip running 10 mls/hr. Patient without c/o pain at this time. Safety precautions in place, bed in lowest locked position with 2 side rails up, call light within reach. Will continue to monitor Q1hr and PRN.
[2020-01-15 22:00] VITALS: BP 135/79
[2020-01-15] MEDS: TEMAZEPAM 15 MG CAP PO PRN (23:34)
[2020-01-16 05:00] VITALS: BP 110/53
[2020-01-16] MEDS: SODIUM CHLORIDE 0.9% 1,000 ML IV SCH (05:56)
--- NOTE | 2020-01-16 06:00 | NUR ---
Patient resting Respirations even and non-labored with no s/s of distress at this time.
[2020-01-16 06:25] LABS: INR 1.51 (0.9-1.15)
--- NOTE | 2020-01-16 07:26 | NUR ---
Closing shift note Patient resting without s/s of distress. Endorsed care to day shift RNRachel.
[2020-01-16 09:00] VITALS: BP_SYST 137; BP_SYST 160; BP_DIAS 89; BP_DIAS 90
--- NOTE | 2020-01-16 09:00 | NUR ---
ASSUMED CARE OF PATIENT PATIENT IS SITTING UP IN BED WATCHING TELEVISION, NO S/S OF DISTRESS, SOB, OR PAIN. UPDATED ON POC AND INSTRUCTED TO CALL FOR ASSISTANCE NEEDED, PATIENT VERBALIZED UNDERSTANDING. BED LOCKED IN LOWEST POSITION, SIDE RAILS UP X2, CALL LIGHT WITHIN REACH. SAFETY PRECAUTIONS IN PLACE. WILL CONTINUE TO MONITOR FOR CHANGES.
[2020-01-16 09:23] LABS: Basophils # (auto) 0 10 ^3/uL (0-0.2); Basophils % (auto) 0.9 % (0.0-2.0); Eosinophils # (auto) 0.1 10 ^3/uL (0-0.8); Eosinophils % (auto) 2.6 % (0.0-7.0); Hematocrit 39.2 % (41.0-53.0); Hemoglobin 12.9 g/dL (13.5-17.5); Lymphocytes # (auto) 0.8 10 ^3/uL (0.4-5.4); Lymphocytes % (auto) 26.5 % (10.0-50.0); Mean Corpuscular Hemoglobin 28.6 pg (28.0-32.0); Mean Corpuscular Hgb Conc. 32.9 g/dL (32.0-36.0); Mean Corpuscular Volume 86.8 fL (80.0-100.0); Monocytes # (auto) 0.3 10 ^3/uL (0-1.3); Monocytes % (auto) 8.5 % (0.0-12.0); Neutrophils # (auto) 1.9 10 ^3/uL (1.6-8.6); Neutrophils % (auto) 61.5 % (37.0-80.0); Nucleated Red Blood Cells % 0.2 %; Platelet Count (auto) 77 10^3/uL (140-450); Red Blood Cells 4.52 10^6/uL (4.5-5.90); Red Cell Distribution Width 14.4 % (11.8-14.3); White Blood Cell 3.1 10^3/uL (4.4-10.8)
[2020-01-16 09:24] LABS: Albumin 3.2 g/dL (3.4-5.0)
[2020-01-16] MEDS: cefTRIAXone 1GM/50ML D5W 50 ML IV SCH (10:00)
[2020-01-16] MEDS: FAMOTIDINE (10MG/ML) 2ML VL IV SCH ×2 (10:00→21:01)
[2020-01-16 13:00] VITALS: BP 125/81
[2020-01-16] MEDS: HEPARIN DRIP/D5W 100UNITS/ML 250 ML IV SCH (15:22)
[2020-01-16 16:50] VITALS: BP 124/73
[2020-01-16] MEDS ORDERED: WARFARIN SODIUM 2.5 MG TAB PO ONE (17:00)
--- NOTE | 2020-01-16 19:30 | NUR ---
Opening shift note Assumed care of patient from day shift RN. Patient sitting up in bed A&Ox4, respirations even and non-labored with no s/s of distress or c/o pain at this time. Discussed POC with patient who verbalized understanding. Advised patient to call for assistance. Bed in lowest locked position with 2 side rails up, call light within reach, safety precautions in place. Will continue to monitor Q1hr and PRN.
[2020-01-16] MEDS: TEMAZEPAM 15 MG CAP PO PRN (21:01)
[2020-01-16 23:35] VITALS: BP 129/73
[2020-01-17 05:56] LABS: Basophils # (auto) 0 10 ^3/uL (0-0.2); Basophils % (auto) 0.8 % (0.0-2.0); Eosinophils # (auto) 0.1 10 ^3/uL (0-0.8); Eosinophils % (auto) 2.5 % (0.0-7.0); Hematocrit 41.2 % (41.0-53.0); Hemoglobin 13.8 g/dL (13.5-17.5); Lymphocytes % (auto) 26.8 % (10.0-50.0); Mean Corpuscular Hgb Conc. 33.5 g/dL (32.0-36.0); Mean Corpuscular Volume 86.6 fL (80.0-100.0); Monocytes # (auto) 0.4 10 ^3/uL (0-1.3); Monocytes % (auto) 9.3 % (0.0-12.0); Neutrophils # (auto) 2.3 10 ^3/uL (1.6-8.6); Neutrophils % (auto) 60.6 % (37.0-80.0); Nucleated Red Blood Cells % 0.1 %; Platelet Count (auto) 74 10^3/uL (140-450); Red Blood Cells 4.76 10^6/uL (4.5-5.90); Red Cell Distribution Width 14.8 % (11.8-14.3); White Blood Cell 3.8 10^3/uL (4.4-10.8)
[2020-01-17 06:05] VITALS: BP 150/85
[2020-01-17 06:13] LABS: INR 1.99 (0.9-1.15)
[2020-01-17 06:14] LABS: Albumin 3.3 g/dL (3.4-5.0)
--- NOTE | 2020-01-17 06:25 | NUR ---
Patient resting Respirations even and non-labored without s/s of distress at this time.
--- NOTE | 2020-01-17 07:35 | NUR ---
OPENING SHIFT NOTE ASSUMED CARE OF PATIENT, AWAKE AND ALERT. NO S/S OF DISTRESS, SOB, OR PAIN. UPDATED ON POC AND INSTRUCTED TO CALL FOR ASSISTANCE NEEDED, PATIENT VERBALIZED UNDERSTANDING. BED LOCKED IN LOWEST POSITION, SIDE RAILS UP X2, CALL LIGHT WITHIN REACH. SAFETY PRECAUTIONS IN PLACE. WILL CONTINUE TO MONITOR FOR CHANGES.
[2020-01-17] MEDS: HEPARIN DRIP/D5W 100UNITS/ML 250 ML IV SCH (08:12)
[2020-01-17 09:00] VITALS: BP 139/96
[2020-01-17] MEDS: FAMOTIDINE (10MG/ML) 2ML VL IV SCH (10:28)
[2020-01-17 13:00] VITALS: BP 122/83
--- NOTE | 2020-01-17 14:20 | NUR ---
[facility] Discharge instructions given as ordered. Encourage to follow up with [facility] as instructed. All questions and concerns addressed. Patient verbalized understanding. Medication reconciliation form completed and copy given to patient. IV removed with catheter intact, pressure dressing applied. Telemetry unit returned to ICU. Patient taken to vehicle via wheelchair with all personal belongings, accompanied by staff. No distress noted at time of departure.
--- NOTE | 2020-01-17 16:25 | NUR ---
1620 -01/17/20 - [facility]ed to [facility] at [phone], face sheet, discharge summary. Contacted the [facility] at [phone] spoke with affiliate marketing coordinator Faizan who confirmed receiving all faxed documentation. Per Faizan, he will forward to 's PCP for f/u.
[2020-01-17] MEDS ORDERED: WARFARIN SODIUM 1 MG TAB PO ONE (17:00)
== END 2020-01-17 14:20 | disposition home or self-care (01) | DRG 394 ==
LOC: ER 02:56 → TELE 02:57 → TELE-WESTW 10:39
PROVIDERS: ADMIT Internal Medicine; ATTEND Family Medicine
DX: K55.069 Acute infarction of intestine, part and extent unspecified (principal); R18.8 Other ascites; J90 Pleural effusion, not elsewhere classified; K74.60 Unspecified cirrhosis of liver; K52.9 Noninfective gastroenteritis and colitis, unspecified; D69.6 Thrombocytopenia, unspecified; E86.0 Dehydration; I10 Essential (primary) hypertension; Z79.01 Long term (current) use of anticoagulants; E66.9 Obesity, unspecified; Z68.32 Body mass index [BMI] 32.0-32.9, adult; Z91.018 Allergy to other foods; Z90.89 Acquired absence of other organs; Z80.42 Family history of malignant neoplasm of prostate; Z82.49 Family history of ischemic heart disease and other diseases of the circulatory system
CPT/HCPCS: 36415; 70450; 71045; 74176; 74177; 80053; 80307; 81001; 82040; 82150; 82378; 82565; 83605; 83690; 83735; 84443; 84484; 85025; 85610; 85652; 85730; 87040; 87086; 93005; 96365; 96367; 96375; G0378; J0696; J1885; J2405; J3490

== ENCOUNTER 2020-09-10 02:15 | Emergency (ER) | payer OTHER ==
[2020-09-10 06:31] LABS: Basophils # (auto) 0.1 10 ^3/uL (0-0.2); Basophils % (auto) 1.5 % (0.0-2.0); Eosinophils # (auto) 0.2 10 ^3/uL (0-0.8); Eosinophils % (auto) 2.6 % (0.0-7.0); Hemoglobin 13.4 g/dL (13.5-17.5); Lymphocytes # (auto) 1.3 10 ^3/uL (0.4-5.4); Lymphocytes % (auto) 18.8 % (10.0-50.0); Mean Corpuscular Hemoglobin 29.1 pg (28.0-32.0); Mean Corpuscular Hgb Conc. 33.5 g/dL (32.0-36.0); Mean Corpuscular Volume 86.8 fL (80.0-100.0); Monocytes # (auto) 0.6 10 ^3/uL (0-1.3); Monocytes % (auto) 9.1 % (0.0-12.0); Neutrophils # (auto) 4.8 10 ^3/uL (1.6-8.6); Platelet Count (auto) 97 10^3/uL (140-450); Red Blood Cells 4.61 10^6/uL (4.5-5.90); Red Cell Distribution Width 15.2 % (11.8-14.3)
[2020-09-10 06:45] LABS: Anion Gap 5 (5-15); BUN/Creatinine Ratio 15.1; Blood Urea Nitrogen 14 mg/dL (7-18); Calcium 8.9 mg/dL (8.5-10.1); Carbon Dioxide 27 mmol/L (21-32); Chloride 110 mmol/L (98-107); GFR African American 106 mL/min; GFR Non-African American 87 mL/min; Glucose 96 mg/dL (74-106); Potassium 3.9 mmol/L (3.5-5.1); Sodium 142 mmol/L (136-145)
[2020-09-10 06:53] LABS: Urine Bacteria NONE SEEN /hpf (None Seen); Urine Blood Negative /uL (Negative); Urine Mucus FEW (None Seen); Urine Specific Gravity 1.024 (1.001-1.035); Urine WBC <1 /hpf (0 - 3)
== END 2020-09-10 07:43 | disposition left against medical advice (07) ==
LOC: ER 02:15
DX: R10.31 Right lower quadrant pain (principal); Z53.21 Procedure and treatment not carried out due to patient leaving prior to being seen by health care provider
CPT/HCPCS: 36415; 80048; 81001; 84484; 85025; 85049

== ENCOUNTER 2020-10-29 14:35 | Emergency (ER) | payer OTHER ==
[~2020-10-29] VITALS: Ht 180.3 cm; Wt 117.9 kg
[2020-10-29 15:35] LABS: Basophils # (auto) 0 10 ^3/uL (0-0.2); Basophils % (auto) 0.6 % (0.0-2.0); Eosinophils # (auto) 0.2 10 ^3/uL (0-0.8); Hematocrit 39.1 % (41.0-53.0); Hemoglobin 13.2 g/dL (13.5-17.5); Lymphocytes # (auto) 1.1 10 ^3/uL (0.4-5.4); Lymphocytes % (auto) 21.9 % (10.0-50.0); Mean Corpuscular Hemoglobin 29.3 pg (28.0-32.0); Mean Corpuscular Hgb Conc. 33.9 g/dL (32.0-36.0); Mean Corpuscular Volume 86.4 fL (80.0-100.0); Monocytes # (auto) 0.4 10 ^3/uL (0-1.3); Monocytes % (auto) 7.9 % (0.0-12.0); Neutrophils # (auto) 3.3 10 ^3/uL (1.6-8.6); Neutrophils % (auto) 65.6 % (37.0-80.0); Red Blood Cells 4.52 10^6/uL (4.5-5.90); Red Cell Distribution Width 14.8 % (11.8-14.3); White Blood Cell 5.1 10^3/uL (4.4-10.8)
[2020-10-29 15:51] LABS: Albumin 3.5 g/dL (3.4-5.0); Anion Gap 7 (5-15); Blood Urea Nitrogen 16 mg/dL (7-18); Carbon Dioxide 23 mmol/L (21-32); Chloride 111 mmol/L (98-107); Glucose 123 mg/dL (74-106); Lipase 132 U/L (73-393); Potassium 3.7 mmol/L (3.5-5.1); Sodium 141 mmol/L (136-145)
[2020-10-29 15:57] LABS: Alanine Aminotransferase 24 U/L (16-61); Alkaline Phosphatase 100 U/L (45-117); Aspartate Aminotransferase 23 U/L (15-37); Bilirubin, Total 0.9 mg/dL (0.2-1.0); GFR African American 104 mL/min; GFR Non-African American 86 mL/min; Total Protein 7.7 g/dL (6.4-8.2)
[2020-10-29 17:10] VITALS: BP 121/74
== END 2020-10-29 18:32 | disposition home or self-care (01) ==
LOC: ER 14:35
DX: S39.91XA Unspecified injury of abdomen, initial encounter (principal); R42 Dizziness and giddiness; F12.10 Cannabis abuse, uncomplicated; I10 Essential (primary) hypertension; Z91.018 Allergy to other foods; W22.8XXA Striking against or struck by other objects, initial encounter; Y93.89 Activity, other specified; Y92.89 Other specified places as the place of occurrence of the external cause; Y99.8 Other external cause status
CPT/HCPCS: 36415; 74176; 80053; 82140; 83690; 84484; 85025; 93005

== ENCOUNTER 2021-04-15 09:24 | Emergency (ER) | payer OTHER ==
[~2021-04-15] VITALS: Ht 180.3 cm; Wt 113.4 kg
[2021-04-15] MEDS ORDERED: cefTRIAXone 1GM/50ML D5W 50 ML IV ONE (13:00)
[2021-04-15] MEDS ORDERED: SODIUM CHLORIDE 0.9% 1,000 ML IV ONE (13:00)
[2021-04-15] MEDS ORDERED: ACETAMINOPHEN 325 MG TAB PO ONE (13:00)
[2021-04-15] MEDS ORDERED: methylPREDNISolone SOD SUCC 125 MG/2 ML VL IV ONE (13:00)
[2021-04-15] MEDS ORDERED: DOXYCYCLINE 100MG/250ML 250 ML IV ONE (13:00)
[2021-04-15 14:14] VITALS: BP 113/74
== END 2021-04-15 16:25 | disposition home or self-care (01) ==
LOC: ER 09:24
DX: J18.9 Pneumonia, unspecified organism (principal); I10 Essential (primary) hypertension; Z90.89 Acquired absence of other organs; Z20.822 Contact with and (suspected) exposure to COVID-19
CPT/HCPCS: 36415; 71045; 87426; 96365; 96366; 96368; 96375; 99284; J0696; J2930; J3490; J7030

== ENCOUNTER 2021-10-14 09:53 | Emergency (ER) | payer OTHER ==
[~2021-10-14] VITALS: Ht 180.3 cm; Wt 113.0 kg
[2021-10-14 13:51] LABS: Basophils # (auto) 0 10 ^3/uL (0-0.2); Basophils % (auto) 0.7 % (0.0-2.0); Eosinophils # (auto) 0.1 10 ^3/uL (0-0.8); Eosinophils % (auto) 2.6 % (0.0-7.0); Hematocrit 42.6 % (41.0-53.0); Hemoglobin 13.6 g/dL (13.5-17.5); Lymphocytes # (auto) 0.8 10 ^3/uL (0.4-5.4); Lymphocytes % (auto) 16.8 % (10.0-50.0); Mean Corpuscular Hemoglobin 27.6 pg (28.0-32.0); Mean Corpuscular Volume 86.2 fL (80.0-100.0); Monocytes # (auto) 0.3 10 ^3/uL (0-1.3); Neutrophils # (auto) 3.6 10 ^3/uL (1.6-8.6); Neutrophils % (auto) 72.9 % (37.0-80.0); Red Blood Cells 4.95 10^6/uL (4.5-5.90); Red Cell Distribution Width 14.7 % (11.8-14.3); White Blood Cell 4.9 10^3/uL (4.4-10.8)
[2021-10-14 14:08] LABS: Albumin 3.7 g/dL (3.4-5.0)
[2021-10-14 14:11] LABS: BUN/Creatinine Ratio 17.3; Bilirubin, Total 1.3 mg/dL (0.2-1.0); Total Protein 7.7 g/dL (6.4-8.2)
[2021-10-14 15:40] VITALS: BP 107/67
== END 2021-10-14 15:43 | disposition home or self-care (01) ==
LOC: ER 09:53
DX: K74.60 Unspecified cirrhosis of liver (principal); R10.84 Generalized abdominal pain; I10 Essential (primary) hypertension; Z87.440 Personal history of urinary (tract) infections
CPT/HCPCS: 36415; 70450; 74176; 80053; 82962; 84484; 85025; 93005

== ENCOUNTER 2022-12-14 11:00 | Inpatient (IN) | payer OTHER ==
[~2022-12-14] VITALS: Ht 180.3 cm; Wt 100.5 kg
[~2022-12-14 11:00] MED LIST changes: +GABA-1308 PO; -GABA100C9 PO
[2022-12-14 11:40] LABS: Hemoglobin 13.4 g/dL (13.5-17.5); Mean Corpuscular Hemoglobin 28.7 pg (28.0-32.0); Mean Corpuscular Hgb Conc. 33.5 g/dL (32.0-36.0); Mean Corpuscular Volume 85.7 fL (80.0-100.0); Red Blood Cells 4.67 10^6/uL (4.5-5.90); White Blood Cell 18.1 10^3/uL (4.4-10.8)
[2022-12-14 11:48] VITALS: PULSE 84; RESP 16
[2022-12-14 11:52] LABS: Alkaline Phosphatase 177 U/L (46-116); Calcium 8.4 mg/dL (8.7-10.4); Chloride 97 mmol/L (98-107); Glucose 237 mg/dL (74-106); Sodium 123 mmol/L (136-145)
[2022-12-14 11:54] LABS: Basophils % (manual) 0 (0.0-2.0); Blast Cells 0; Eosinophils % (manual) 0 (0-7); Metamyelocytes % 0; Myelocytes % 0; Promyelocytes % 0; Reactive Lymphocytes 0
[2022-12-14 13:08] LABS: Band Neutrophils % (manual) 1; Lymphocytes % (manual) 3 (10.0-50.0); Monocytes % (manual) 3 (0-12)
[2022-12-14 13:09] LABS: Platelet Estimate Adequate
[2022-12-14 13:33] LABS: Alanine Aminotransferase 142 U/L (7-40); Albumin 3.7 g/dL (3.2-4.8); Anion Gap 7 (5-15); Aspartate Aminotransferase 181 U/L (13-40); BUN/Creatinine Ratio 20.8 (10.0-20.0); Blood Urea Nitrogen 53 mg/dL (9-23); Carbon Dioxide 19 mmol/L (20-30); Lipase 93 U/L (12-53); Potassium 3.5 mmol/L (3.5-5.1); Total Protein 7.5 g/dL (5.7-8.2)
[2022-12-14] MEDS ORDERED: SODIUM CHLORIDE 0.9% 1,000 ML IV SCH (13:45)
[2022-12-14] MEDS ORDERED: ACETAMINOPHEN 325 MG TAB PO PRN (13:45)
[2022-12-14] MEDS ORDERED: cefTRIAXone 1GM/50ML D5W 50 ML IV ONE (14:00)
[2022-12-14] MEDS ORDERED: metroNIDAZOLE 500MG/100ML 100 ML IV ONE (14:00)
[2022-12-14] MEDS: SODIUM CHLORIDE 0.9% 1,000 ML IV SCH (14:00)
[2022-12-14] MEDS ORDERED: PANTOPRAZOLE 40 MG/10 ML VIAL INJ IV ONE (14:15)
[2022-12-14 14:24] LABS: Triglycerides 85 mg/dL (< 150)
[2022-12-14 14:25] LABS: LDL Cholesterol 47 mg/dL (< 100)
[2022-12-14 14:26] LABS: Cholesterol 73 mg/dL (< 200); HDL Cholesterol 10 mg/dL (40-59)
[2022-12-14 14:51] LABS: Urine Bacteria FEW /hpf (None Seen); Urine Blood TRACE /uL (Negative); Urine Clarity Clear (Clear); Urine Color Yellow (Yellow); Urine Protein, UAD TRACE (Negative); Urine Specific Gravity 1.011 (1.001-1.035); Urine Urobilinogen Normal (Negative); Urine WBC 3 /hpf (0 - 3); Urine pH 5.5 (5.0-8.0)
[2022-12-14 14:55] LABS: Sodium Urine < 10 mmol/L (40-220)
[2022-12-14 15:00] LABS: Protein, Urine 27.5 mg/dL (0.0-11.9)
[2022-12-14 15:03] LABS: Creatinine, Urine 87.13 mg/dL (30.0-125.0)
[2022-12-14 15:06] LABS: Lactic Acid w/Reflex 2.6 mmol/L (0.4-2.0)
[2022-12-14 18:38] VITALS: RESP 18; O2SAT 96
[2022-12-14 19:51] LABS: Phosphorus 3.8 mg/dL (2.4-5.1)
[2022-12-14 20:00] VITALS: PULSE 72; RESP 18; O2SAT 96
[2022-12-14 20:02] LABS: Magnesium 2.4 mg/dL (1.6-2.6)
[2022-12-14] MEDS: GABAPENTIN 100 MG CAP PO SCH (21:02)
[2022-12-14] MEDS: HYDROcodone-ACET 5/325MG TAB PO PRN (21:07)
[2022-12-14] MEDS: metroNIDAZOLE 500MG/100ML 100 ML IV SCH (21:08)
[2022-12-14 22:00] VITALS: BP 122/68; PULSE 72; RESP 18; TEMP 99.2; O2SAT 96
[2022-12-15] MEDS: HYDROcodone-ACET 5/325MG TAB PO PRN (02:30)
[2022-12-15 05:00] VITALS: BP 112/68; PULSE 81; RESP 18; TEMP 98.9; O2SAT 97
[2022-12-15] MEDS: GABAPENTIN 100 MG CAP PO SCH ×2 (05:27→14:57)
[2022-12-15] MEDS: metroNIDAZOLE 500MG/100ML 100 ML IV SCH ×2 (05:27→14:53)
[2022-12-15] MEDS: SODIUM CHLORIDE 0.9% 1,000 ML IV SCH ×2 (05:28→10:21)
[2022-12-15 06:26] LABS: Basophils # (auto) 0 10 ^3/uL (0-0.2); Basophils % (auto) 0.2 % (0.0-2.0); Eosinophils # (auto) 0.1 10 ^3/uL (0-0.8); Eosinophils % (auto) 0.7 % (0.0-7.0); Hematocrit 33.2 % (41.0-53.0); Hemoglobin 11.1 g/dL (13.5-17.5); Lymphocytes # (auto) 0.6 10 ^3/uL (0.4-5.4); Lymphocytes % (auto) 6.1 % (10.0-50.0); Mean Corpuscular Hemoglobin 28.3 pg (28.0-32.0); Mean Corpuscular Hgb Conc. 33.3 g/dL (32.0-36.0); Monocytes # (auto) 0.8 10 ^3/uL (0-1.3); Monocytes % (auto) 7.8 % (0.0-12.0); Neutrophils # (auto) 8.4 10 ^3/uL (1.6-8.6); Neutrophils % (auto) 85.2 % (37.0-80.0); Red Cell Distribution Width 14.3 % (11.8-14.3); White Blood Cell 9.9 10^3/uL (4.4-10.8)
[2022-12-15 06:45] LABS: Alanine Aminotransferase 119 U/L (7-40); Albumin 3.1 g/dL (3.2-4.8); Alkaline Phosphatase 180 U/L (46-116); Anion Gap 9 (5-15); Aspartate Aminotransferase 156 U/L (13-40); BUN/Creatinine Ratio 30.7 (10.0-20.0); Bilirubin, Total 1.4 mg/dL (0.2-1.0); Blood Urea Nitrogen 47 mg/dL (9-23); Carbon Dioxide 21 mmol/L (20-30); Chloride 103 mmol/L (98-107); Potassium 3.1 mmol/L (3.5-5.1); Total Protein 6.5 g/dL (5.7-8.2)
[2022-12-15 06:53] LABS: Glucose 136 mg/dL (74-106); Sodium 133 mmol/L (136-145)
[2022-12-15 08:00] VITALS: BP 149/90; PULSE 72; RESP 18; TEMP 98.4; O2SAT 96
[2022-12-15 08:07] LABS: Prostate Specific Antigen 0.3 ng/mL (0.0-4.0)
[2022-12-15] MEDS ORDERED: LEVO750T8 PO (08:21)
[2022-12-15] MEDS ORDERED: METR-344 PO (08:21)
[2022-12-15 08:30] VITALS: PULSE 72; RESP 20
[2022-12-15] MEDS ORDERED: cefTRIAXone 1GM/50ML D5W 50 ML IV SCH (09:00)
[2022-12-15] MEDS ORDERED: PANTOPRAZOLE 40 MG/10 ML VIAL INJ IV SCH (10:00)
[2022-12-15] MEDS ORDERED: ENOXAPARIN SOD 40 MG/0.4 ML SYRINGE SC SCH ×2 (10:00)
[2022-12-15 10:06] LABS: PSA Free 0.03 ng/mL
[2022-12-15] MEDS ORDERED: SODIUM BICARBONATE 50ML VIAL 50 ML in SOD CHL 0.45% 1,000 ML IV SCH (12:15)
[2022-12-15 12:40] VITALS: BP 147/76; PULSE 94; RESP 19; TEMP 98.9; O2SAT 96
[2022-12-15] MEDS: POTASSIUM CHL 20MEQ/100ML 100 ML IV SCH ×2 (16:01→18:07)
[2022-12-15 17:01] VITALS: BP 152/71; PULSE 95; RESP 18; TEMP 98.6; O2SAT 95
[2022-12-17 09:14] LABS: Hepatitis B Surface Antigen Negative (Negative)
[2022-12-17 09:35] LABS: Hepatitis A Ab IgM Negative
[2022-12-17 09:36] LABS: Hepatitis B Core IgM Negative
[2022-12-17 09:45] LABS: Hepatitis C Antibody Positive (Negative)
== END 2022-12-15 20:13 | disposition home health service (06) | DRG 391 ==
LOC: ER 11:00 → OVERFLOW 13:42 → WEST WING 17:20
PROVIDERS: ADMIT Nurse Practitioner Family; ATTEND Internal Medicine
DX: K52.9 Noninfective gastroenteritis and colitis, unspecified (principal); N17.0 Acute kidney failure with tubular necrosis; E87.1 Hypo-osmolality and hyponatremia; N18.4 Chronic kidney disease, stage 4 (severe); E87.20 Acidosis, unspecified; N13.8 Other obstructive and reflux uropathy; R78.81 Bacteremia; N13.30 Unspecified hydronephrosis; E66.01 Morbid (severe) obesity due to excess calories; I12.9 Hypertensive chronic kidney disease with stage 1 through stage 4 chronic kidney disease, or unspecified chronic kidney disease; E87.6 Hypokalemia; N40.1 Benign prostatic hyperplasia with lower urinary tract symptoms; R73.9 Hyperglycemia, unspecified; E87.8 Other disorders of electrolyte and fluid balance, not elsewhere classified; K74.60 Unspecified cirrhosis of liver; Z68.30 Body mass index [BMI] 30.0-30.9, adult; Z80.42 Family history of malignant neoplasm of prostate; Z82.49 Family history of ischemic heart disease and other diseases of the circulatory system
CPT/HCPCS: 36415; 74176; 76700; 80053; 80061; 80074; 81001; 82140; 82306; 82570; 83036; 83605; 83690; 83735; 83930; 83935; 83970; 84100; 84154; 84156; 84300; 84443; 85007; 85025; 85027; 87040; 87077; 87186; 93005; 97163; C9113; G0378; J0696; J3480; J3490

== ENCOUNTER 2023-04-03 17:52 | Emergency (ER) | payer OTHER ==
[~2023-04-03] VITALS: Ht 180.3 cm; Wt 85.0 kg
[~2023-04-03 17:52] MED LIST changes: +LEVO750T8 PO; +METR-344 PO
[2023-04-03] MEDS ORDERED: SODIUM CHLORIDE 0.9% 1,000 ML IV ONE (18:30)
[2023-04-03 18:55] LABS: Basophils # (auto) 0 10 ^3/uL (0-0.2); Basophils % (auto) 0.2 % (0.0-2.0); Eosinophils # (auto) 0 10 ^3/uL (0-0.8); Hemoglobin 8.2 g/dL (13.5-17.5); Lymphocytes # (auto) 0.6 10 ^3/uL (0.4-5.4); Monocytes # (auto) 0.3 10 ^3/uL (0-1.3); Nucleated Red Blood Cells % 0.1 %
[2023-04-03 18:57] LABS: Eosinophils % (auto) 0.1 % (0.0-7.0); Hematocrit 25.3 % (41.0-53.0); Lymphocytes % (auto) 7.3 % (10.0-50.0); Mean Corpuscular Hemoglobin 28.3 pg (28.0-32.0); Mean Corpuscular Hgb Conc. 32.6 g/dL (32.0-36.0); Mean Corpuscular Volume 86.7 fL (80.0-100.0); Monocytes % (auto) 3.3 % (0.0-12.0); Neutrophils # (auto) 7.3 10 ^3/uL (1.6-8.6); Neutrophils % (auto) 89.1 % (37.0-80.0); Red Blood Cells 2.91 10^6/uL (4.5-5.90); Red Cell Distribution Width 15.1 % (11.8-14.3); White Blood Cell 8.2 10^3/uL (4.4-10.8)
[2023-04-03 19:00] VITALS: PULSE 94; RESP 16; O2SAT 98
[2023-04-03 19:14] LABS: Alanine Aminotransferase 116 U/L (7-40); Albumin 2.5 g/dL (3.2-4.8); Alkaline Phosphatase 174 U/L (46-116); Anion Gap 12 (5-15); Aspartate Aminotransferase 458 U/L (13-40); BUN/Creatinine Ratio 5.6 (10.0-20.0); Bilirubin, Total 2.5 mg/dL (0.2-1.0); Blood Urea Nitrogen 10 mg/dL (9-23); Calcium 7.4 mg/dL (8.7-10.4); Carbon Dioxide 24 mmol/L (20-30); Chloride 103 mmol/L (98-107); Glucose 64 mg/dL (74-106); Magnesium 1.7 mg/dL (1.6-2.6); Potassium 2.8 mmol/L (3.5-5.1); Sodium 139 mmol/L (136-145); Total Protein 6.8 g/dL (5.7-8.2)
[2023-04-03 19:36] LABS: INR 2.52 (0.9-1.15)
[2023-04-03 19:40] VITALS: PULSE 91; RESP 19; O2SAT 99
[2023-04-03 19:41] LABS: Partial Thromboplastin Time 125.6 SEC (24.5-34.5)
[2023-04-03] MEDS ORDERED: DEXTROSE (50%) 50ML SYRG IV ONE (19:45)
[2023-04-03] MEDS ORDERED: POTASSIUM CHLORIDE 40 MEQ, LIDOCAINE 1% (LOCAL ANESTH.) 4 ML in SODIUM CHL 0.9% 250 ML IV ONE (19:45)
[2023-04-03 20:04] LABS: Lactic Acid w/Reflex 4.7 mmol/L (0.4-2.0)
[2023-04-03 20:36] LABS: Platelet Estimate Decreased
[2023-04-03 20:37] LABS: Hypochromia Slight
[2023-04-03] MEDS ORDERED: POTASSIUM EFFERVESENT TAB 25 MEQ PO ONE (22:15)
[2023-04-04 02:24] VITALS: BP 98/63; PULSE 104; RESP 22; TEMP 97.7; O2SAT 98
[2023-04-04 15:21] LABS: Blood Alcohol < 3.0 mg/dL (<10)
== END 2023-04-04 03:12 | disposition home or self-care (01) ==
LOC: ER 17:52
DX: T68.XXXA Hypothermia, initial encounter (principal); D64.9 Anemia, unspecified; R18.8 Other ascites; I82.401 Acute embolism and thrombosis of unspecified deep veins of right lower extremity; E72.20 Disorder of urea cycle metabolism, unspecified; D69.6 Thrombocytopenia, unspecified; R51.9 Headache, unspecified; R07.89 Other chest pain; I12.0 Hypertensive chronic kidney disease with stage 5 chronic kidney disease or end stage renal disease; N18.6 End stage renal disease; Z99.2 Dependence on renal dialysis; Z90.89 Acquired absence of other organs; Z79.2 Long term (current) use of antibiotics; Z79.899 Other long term (current) drug therapy; Z86.73 Personal history of transient ischemic attack (TIA), and cerebral infarction without residual deficits
CPT/HCPCS: 36415; 70450; 71045; 74176; 80053; 80320; 82140; 82962; 83605; 83735; 83880; 84484; 85025; 85610; 85730; 86850; 86900; 86901; 87040; 87077; 87186; 93005; 93971; 96361; 96374; 99285; J2001; J3480; J7030; J7042; J7050